=== PATIENT | male | born 1960 | race African-American/Black ===

== ENCOUNTER 2017-01-18 19:04 | Emergency (ER) | payer MEDICAID ==
[~2017-01-18] VITALS: Ht 193 cm; Wt 116.0 kg
[~2017-01-18 19:04] MED LIST: INSU3INS6 SUBCUT
[2017-01-18] MEDS ORDERED: ONDANSETRON HCL 4MG/2ML VIAL IV STA (19:55)
[2017-01-18] MEDS ORDERED: SODIUM CHLORIDE 0.9% 1,000 ML IV ONE (19:55)
[2017-01-18] MEDS ORDERED: PANTOPRAZOLE SODIUM 40 MG/VIAL IV ONE (20:00)
[2017-01-18 20:25] LABS: BASOPHILS % 0.3 % (0.0-2.0); EOSINOPHILS % 0.2 % (0.0-5.0); HEMATOCRIT. 45.2 % (42.0-52.0); HEMOGLOBIN. 14.8 g/dL (14.0-18.0); LYMPHOCYTES % 14.6 % (20.0-50.0); MEAN CORPUSCULAR HEMOGLOBIN 27.7 pg (28.0-32.0); MEAN CORPUSCULAR VOLUME 84.5 fL (80.0-94.0); MEAN PLATELET VOLUME 9.2 fl (7.4-10.4); MONOCYTES % 8.1 % (2.0-8.0); NEUTROPHILS % 76.8 % (40.0-76.0); PLATELET 198 x1000/uL (130-400); RED BLOOD CELL COUNT 5.35 mill/uL (4.7-6.1); RED CELL DISTRIBUTION WIDTH 15.3 % (11.6-14.6)
[2017-01-18 20:31] LABS: CHLORIDE 96 mEq/L (98-107)
[2017-01-18 20:33] LABS: PROTHROMBIN TIME 10.9 sec
[2017-01-18 20:40] LABS: CARBON DIOXIDE 31 mEq/L (21-32); ETHANOL BLOOD < 10 mg/dL
[2017-01-18 23:17] VITALS: BP 164/98
== END 2017-01-18 23:18 | disposition home or self-care (01) ==
LOC: ER 19:10
DX: R10.13 Epigastric pain (principal); E11.65 Type 2 diabetes mellitus with hyperglycemia; Z79.4 Long term (current) use of insulin; Z87.11 Personal history of peptic ulcer disease
CPT/HCPCS: 36415; 71010; 74176; 80053; 83690; 85025; 85610; 93005; 96361; 96374; 96375; 99285; C9113; G0482; J2405; J7030; Z7610; 80305; 81003

== ENCOUNTER 2017-01-23 12:55 | Inpatient (IN) | payer MEDICAID ==
[~2017-01-23] VITALS: Ht 193 cm; Wt 122.5 kg
[2017-01-23] MEDS ORDERED: MORPHINE SULFATE 4 MG/ML CPJ (NOT FOR IM USE) IV STA (14:07)
[2017-01-23] MEDS ORDERED: PANTOPRAZOLE SODIUM 40 MG/VIAL IV STA (14:07)
[2017-01-23] MEDS ORDERED: SODIUM CHLORIDE 0.9% 1,000 ML IV ONE (14:07)
[2017-01-23] MEDS ORDERED: ONDANSETRON HCL 4MG/2ML VIAL IV STA (14:07)
[2017-01-23 14:29] LABS: BASOPHILS % 0.5 % (0.0-2.0); EOSINOPHILS % 0.4 % (0.0-5.0); HEMATOCRIT. 43.4 % (42.0-52.0); HEMOGLOBIN. 14.1 g/dL (14.0-18.0); MEAN CORPUSCULAR HEMOGLOBIN 27.4 pg (28.0-32.0); MEAN CORPUSCULAR VOLUME 84.2 fL (80.0-94.0); MEAN PLATELET VOLUME 9.1 fl (7.4-10.4); MONOCYTES % 7.1 % (2.0-8.0); PLATELET 197 x1000/uL (130-400); RED BLOOD CELL COUNT 5.16 mill/uL (4.7-6.1); RED CELL DISTRIBUTION WIDTH 15.3 % (11.6-14.6)
[2017-01-23 14:35] LABS: CHLORIDE 104 mEq/L (98-107)
[2017-01-23 14:43] LABS: PARTIAL THROMBOPLASTIN TIME 24.7 sec (24.0-34.0); PROTHROMBIN TIME 10.3 sec
[2017-01-23 14:45] LABS: CARBON DIOXIDE 27 mEq/L (21-32)
[2017-01-23] MEDS ORDERED: METOCLOPRAMIDE HCL 10MG/2ML VIAL IV ONE (15:30)
[2017-01-23] MEDS ORDERED: MORPHINE SULFATE 4 MG/ML CPJ (NOT FOR IM USE) IV NR ×2 (15:37→17:21)
[2017-01-23] MEDS ORDERED: ONDANSETRON HCL 4MG/2ML VIAL IV ONE (17:15)
[2017-01-23] MEDS ORDERED: MORPHINE SULFATE 1MG/ML 1ML INJ SYR(NEO) IV ONE (17:15)
[2017-01-23] MEDS ORDERED: SODIUM CHLORIDE 0.9% 1,000 ML IV SCH (18:54)
[2017-01-23] MEDS ORDERED: ACETAMINOPHEN 325MG TABLET PO PRN (19:00)
[2017-01-23] MEDS ORDERED: MAGNESIUM/ALUMINUM HYDROXIDE/SIMETHICONE 30ML UDC PO PRN (19:00)
[2017-01-23] MEDS ORDERED: CLONIDINE 0.1MG TABLET PO PRN (19:00)
[2017-01-23] MEDS ORDERED: PANTOPRAZOLE 80 MG in SODIUM CHLORIDE 0.9% 100 ML IV SCH (19:00)
[2017-01-23] MEDS ORDERED: IPRATROPIUM/ALBUTEROL 0.5-3(2.5)MG/3ML NEB INH PRN (19:00)
[2017-01-23] MEDS ORDERED: ONDANSETRON HCL 4MG/2ML VIAL IV PRN (19:00)
[2017-01-23] MEDS ORDERED: DEXTROSE 50% WATER 50ML SYRINGE IV PRN (22:30)
[2017-01-23] MEDS: SODIUM CHLORIDE 0.9% 1,000 ML IV SCH (22:59)
[2017-01-24] MEDS ORDERED: PANTOPRAZOLE 80 MG in SODIUM CHLORIDE 0.9% 100 ML IV SCH ×2
[2017-01-24] MEDS ORDERED: PNEUMOCOCCAL 23-VAL P-SAC VAC 0.5 ML IM ONE
[2017-01-24] MEDS: PANTOPRAZOLE 80 MG in SODIUM CHLORIDE 0.9% 100 ML IV SCH ×3 (02:56→21:45)
[2017-01-24] MEDS: BLOOD SUGAR DIAGNOSTIC STRIP TEST SCH ×4 (06:26→21:47)
[2017-01-24] MEDS: INSULIN LISPRO 100 UNITS/ML SUBCUT SCH ×4 (06:48→21:47)
[2017-01-24 07:52] LABS: *AMPHETAMINES SCREEN URINE NEGATIVE (NEGATIVE); *BARBITURATES SCREEN URINE NEGATIVE (NEGATIVE); *BENZODIAZEPINES SCREEN URINE NEGATIVE (NEGATIVE); *COCAINE SCREEN URINE NEGATIVE (NEGATIVE); CANNABINOID URINE SCREEN PRESUMTIVE POSITIVE (NEGATIVE); METHADONE URINE SCREEN NEGATIVE (NEGATIVE); PHENCYCLIDINE URINE SCREEN NEGATIVE (NEGATIVE)
[2017-01-24 10:03] LABS: OPIATES URINE SCREEN PRESUMTIVE POSITIVE (NEGATIVE)
[2017-01-24] MEDS: SODIUM CHLORIDE 0.9% 1,000 ML IV SCH (11:33)
[2017-01-25] MEDS: BLOOD SUGAR DIAGNOSTIC STRIP TEST SCH ×2 (05:57→12:17)
[2017-01-25] MEDS: INSULIN LISPRO 100 UNITS/ML SUBCUT SCH ×2 (05:58→12:19)
[2017-01-25 06:10] LABS: BASOPHILS % 0.4 % (0.0-2.0); EOSINOPHILS % 1.5 % (0.0-5.0); HEMATOCRIT. 41.6 % (42.0-52.0); HEMOGLOBIN. 13.7 g/dL (14.0-18.0); LYMPHOCYTES % 29.9 % (20.0-50.0); MEAN CORPUSCULAR HEMOGLOBIN 27.8 pg (28.0-32.0); MEAN CORPUSCULAR VOLUME 84.5 fL (80.0-94.0); MEAN PLATELET VOLUME 9.2 fl (7.4-10.4); MONOCYTES % 8.5 % (2.0-8.0); NEUTROPHILS % 59.7 % (40.0-76.0); PLATELET 203 x1000/uL (130-400); RED BLOOD CELL COUNT 4.92 mill/uL (4.7-6.1); RED CELL DISTRIBUTION WIDTH 15.5 % (11.6-14.6)
[2017-01-25 06:43] LABS: CHLORIDE 104 mEq/L (98-107)
[2017-01-25 06:52] LABS: CARBON DIOXIDE 28 mEq/L (21-32)
[2017-01-25] MEDS: PANTOPRAZOLE 80 MG in SODIUM CHLORIDE 0.9% 100 ML IV SCH (08:41)
[2017-01-25 13:30] VITALS: BP 127/87
[2017-06-17] MEDS ORDERED: CHOL100046 PO (03:07)
[2017-06-18] MEDS ORDERED: PROT40 PO (11:12)
== END 2017-01-25 15:00 | disposition home or self-care (01) | DRG 282 ==
LOC: ER 14:37 → ENRESERV 19:52 → ER 21:15 → 8WST 22:08
PROVIDERS: ADMIT Internal Medicine; ATTEND Internal Medicine
DX: K85.00 Idiopathic acute pancreatitis without necrosis or infection (principal); E11.65 Type 2 diabetes mellitus with hyperglycemia; E11.9 Type 2 diabetes mellitus without complications; K86.1 Other chronic pancreatitis; F17.210 Nicotine dependence, cigarettes, uncomplicated; Z86.19 Personal history of other infectious and parasitic diseases; Z79.4 Long term (current) use of insulin; Z87.11 Personal history of peptic ulcer disease
CPT/HCPCS: 36415; 74176; 80053; 80305; 82962; 83690; 85025; 85610; 85730; 86850; 86900; 90732; 93970; 96374; 96375; 96376; 99285; C9113; J1815; J2270; J2405; J2765; J7030; J7050

== ENCOUNTER 2017-04-13 19:39 | Inpatient (IN) | payer MEDICAID ==
[~2017-04-13] VITALS: Ht 193 cm; Wt 115.7 kg
[~2017-04-13 19:39] MED LIST changes: +IOHEXOL-300 100 ML BOTTLE ONE; +SODIUM CHLORIDE 0.9% 10ML VIAL ONE
[2017-04-13 20:56] LABS: BASOPHILS % 0.4 % (0.0-2.0); HEMATOCRIT. 47.1 % (42.0-52.0); HEMOGLOBIN. 15.4 g/dL (14.0-18.0); LYMPHOCYTES % 9.7 % (20.0-50.0); MEAN CORPUSCULAR HEMOGLOBIN 28.2 pg (28.0-32.0); MEAN CORPUSCULAR VOLUME 86.1 fL (80.0-94.0); MEAN PLATELET VOLUME 10.3 fl (7.4-10.4); MONOCYTES % 6.3 % (2.0-8.0); NEUTROPHILS % 83.6 % (40.0-76.0); PLATELET 213 x1000/uL (130-400); RED BLOOD CELL COUNT 5.47 mill/uL (4.7-6.1); RED CELL DISTRIBUTION WIDTH 15.4 % (11.6-14.6)
[2017-04-13 21:05] LABS: INR 1.1; PARTIAL THROMBOPLASTIN TIME 24.2 sec (23.4-31.0); PROTHROMBIN TIME 10.9 sec (9.4-11.6)
[2017-04-13 21:14] LABS: CARBON DIOXIDE 32 mEq/L (21-32); CHLORIDE 90 mEq/L (98-107); TROPONIN I < 0.02 ng/mL (0.00-0.04)
[2017-04-13 21:17] LABS: CREATINE KINASE 314 IU/L (39-308); CREATINE KINASE MB FRACTION 2.3 ng/mL (0.5-3.6)
[2017-04-13] MEDS ORDERED: MORPHINE SULFATE 4 MG/ML CPJ (NOT FOR IM USE) IV STA (21:56)
[2017-04-13] MEDS ORDERED: ONDANSETRON HCL 4MG/2ML VIAL IV STA (21:56)
[2017-04-13] MEDS ORDERED: PIPERACILLIN/TAZ 3.375G PREMIX 50 ML IV ONE (22:15)
[2017-04-13] MEDS ORDERED: SODIUM CHLORIDE 0.9% 1000ML BAG (SEPSIS BOLUS) IV ONE (22:15)
[2017-04-13 22:31] LABS: CLARITY URINE CLEAR (CLEAR); COLOR URINE YELLOW (YELLOW); GLUCOSE URINE 3+ (NEGATIVE); KETONES URINE TRACE (NEGATIVE); LEUKOCYTE ESTERASE URINE NEGATIVE (NEGATIVE); NITRITE URINE NEGATIVE (NEGATIVE); OCCULT BLOOD URINE TRACE (NEGATIVE); PROTEIN URINE TRACE (NEGATIVE); SPECIFIC GRAVITY URINE 1.037 (1.005-1.030); UROBILINOGEN URINE 0.2 E.U./dL (0.2-1.0)
[2017-04-13 22:43] LABS: *AMPHETAMINES SCREEN URINE NEGATIVE (NEGATIVE); *BARBITURATES SCREEN URINE NEGATIVE (NEGATIVE); *BENZODIAZEPINES SCREEN URINE NEGATIVE (NEGATIVE); *COCAINE SCREEN URINE NEGATIVE (NEGATIVE); CANNABINOID URINE SCREEN PRESUMTIVE POSITIVE (NEGATIVE); METHADONE URINE SCREEN NEGATIVE (NEGATIVE); OPIATES URINE SCREEN NEGATIVE (NEGATIVE); PHENCYCLIDINE URINE SCREEN NEGATIVE (NEGATIVE)
[2017-04-13] MEDS ORDERED: INSULIN REGULAR (HUMULIN R) 300UNITS/3ML IV ONE (22:45)
[2017-04-14 00:50] VITALS: BP 155/90
[2017-04-14] MEDS ORDERED: METOCLOPRAMIDE HCL 10MG/2ML VIAL IV PRN (03:00)
[2017-04-14] MEDS ORDERED: ONDANSETRON HCL 4MG/2ML VIAL IV PRN ×2 (03:00)
[2017-04-14] MEDS ORDERED: DIPHENHYDRAMINE 50MG/ML VIAL IV PRN (03:00)
[2017-04-14] MEDS ORDERED: DEXTROSE 50% WATER 50ML SYRINGE IV PRN ×2 (03:00)
[2017-04-14] MEDS ORDERED: CLONIDINE 0.1MG TABLET PO PRN (03:00)
[2017-04-14] MEDS ORDERED: MORPHINE SULFATE 4 MG/ML CPJ (NOT FOR IM USE) IV PRN (03:00)
[2017-04-14] MEDS ORDERED: MORPHINE SULFATE 10 MG/ML CPJ IM SCH (03:00)
[2017-04-14] MEDS ORDERED: ACETAMINOPHEN 325MG TABLET PO PRN (03:00)
[2017-04-14] MEDS: BLOOD SUGAR DIAGNOSTIC STRIP TEST SCH ×4 (07:01→21:18)
[2017-04-14 07:59] VITALS: BP 146/75
[2017-04-14 08:42] LABS: BASOPHILS % 0.2 % (0.0-2.0); EOSINOPHILS % 0.1 % (0.0-5.0); HEMOGLOBIN. 14.7 g/dL (14.0-18.0); LYMPHOCYTES % 9.9 % (20.0-50.0); MEAN CORPUSCULAR HEMOGLOBIN 28.2 pg (28.0-32.0); MEAN CORPUSCULAR VOLUME 86.2 fL (80.0-94.0); MEAN PLATELET VOLUME 10.4 fl (7.4-10.4); MONOCYTES % 8.8 % (2.0-8.0); PLATELET 183 x1000/uL (130-400); RED BLOOD CELL COUNT 5.22 mill/uL (4.7-6.1); RED CELL DISTRIBUTION WIDTH 15.2 % (11.6-14.6)
[2017-04-14] MEDS: PANTOPRAZOLE SODIUM 40 MG/VIAL IV SCH (09:01)
[2017-04-14] MEDS: INSULIN LISPRO 100 UNITS/ML SUBCUT SCH ×4 (09:01→21:18)
[2017-04-14] MEDS: SODIUM CHLORIDE 0.9% 1,000 ML IV SCH ×3 (10:11→22:22)
[2017-04-14 12:00] VITALS: BP 134/63
[2017-04-14 16:00] VITALS: BP 149/79
[2017-04-14 20:00] VITALS: BP 148/75
[2017-04-15] VITALS: BP 125/63
[2017-04-15 04:00] VITALS: BP 145/77
[2017-04-15] MEDS: SODIUM CHLORIDE 0.9% 1,000 ML IV SCH ×3 (04:44→14:38)
[2017-04-15] MEDS: BLOOD SUGAR DIAGNOSTIC STRIP TEST SCH ×4 (06:25→21:29)
[2017-04-15 08:18] VITALS: BP 148/76
[2017-04-15] MEDS: PANTOPRAZOLE SODIUM 40 MG/VIAL IV SCH (09:09)
[2017-04-15] MEDS: INSULIN LISPRO 100 UNITS/ML SUBCUT SCH ×4 (09:14→21:30)
[2017-04-15] MEDS ORDERED: PRED10DR RIGHTEYE (11:54)
[2017-04-15 12:00] VITALS: BP 142/73
[2017-04-15] MEDS ORDERED: MAGNESIUM HYDROXIDE 400MG/5ML 30ML UDC PO PRN (12:00)
[2017-04-15] MEDS: PREDNISOLONE ACETATE 1% OPHTH DROPS 1ML RIGHTEYE SCH ×2 (12:27→17:41)
[2017-04-15 16:05] VITALS: BP 144/72
[2017-04-15 20:50] VITALS: BP 138/81
[2017-04-16] VITALS: BP 114/66
[2017-04-16] MEDS: PREDNISOLONE ACETATE 1% OPHTH DROPS 1ML RIGHTEYE SCH ×3 (00:55→13:24)
[2017-04-16 04:00] VITALS: BP 121/72
[2017-04-16 05:58] LABS: BASOPHILS % 0.3 % (0.0-2.0); EOSINOPHILS % 0.7 % (0.0-5.0); HEMATOCRIT. 45.8 % (42.0-52.0); HEMOGLOBIN. 14.9 g/dL (14.0-18.0); LYMPHOCYTES % 23.8 % (20.0-50.0); MEAN CORPUSCULAR HEMOGLOBIN 28.3 pg (28.0-32.0); MEAN CORPUSCULAR VOLUME 86.8 fL (80.0-94.0); MEAN PLATELET VOLUME 10.1 fl (7.4-10.4); MONOCYTES % 11.1 % (2.0-8.0); NEUTROPHILS % 64.1 % (40.0-76.0); PLATELET 168 x1000/uL (130-400); RED BLOOD CELL COUNT 5.27 mill/uL (4.7-6.1)
[2017-04-16] MEDS: BLOOD SUGAR DIAGNOSTIC STRIP TEST SCH ×2 (06:39→12:17)
[2017-04-16 07:02] LABS: CARBON DIOXIDE 25 mEq/L (21-32); CHLORIDE 102 mEq/L (98-107)
[2017-04-16 08:00] VITALS: BP 138/72
[2017-04-16] MEDS: PANTOPRAZOLE SODIUM 40 MG/VIAL IV SCH (09:31)
[2017-04-16] MEDS: INSULIN LISPRO 100 UNITS/ML SUBCUT SCH ×2 (09:35→13:24)
[2017-04-16] MEDS: SODIUM CHLORIDE 0.9% 1,000 ML IV SCH (10:38)
[2017-04-16 12:00] VITALS: BP 138/78
[2017-04-17] MEDS ORDERED: FAMOTIDINE 20MG/2ML VIAL IV SCH (09:00)
== END 2017-04-16 17:30 | disposition home or self-care (01) | DRG 48 ==
LOC: ER 19:39 → 6WST 20:37 → EDBEDREQTM 23:37 → EDBEDREQ 23:37 → ENRESERV 23:41
PROVIDERS: ADMIT Internal Medicine; ATTEND Internal Medicine
DX: E11.43 Type 2 diabetes mellitus with diabetic autonomic (poly)neuropathy (principal); R65.11 Systemic inflammatory response syndrome (SIRS) of non-infectious origin with acute organ dysfunction; K92.0 Hematemesis; E11.65 Type 2 diabetes mellitus with hyperglycemia; K31.84 Gastroparesis; N39.0 Urinary tract infection, site not specified; I10 Essential (primary) hypertension; K22.9 Disease of esophagus, unspecified; Z79.4 Long term (current) use of insulin
CPT/HCPCS: 36415; 74022; 74177; 76705; 80048; 80053; 80305; 81001; 82010; 82550; 82553; 82962; 83605; 83690; 83735; 84484; 85025; 85610; 85730; 87040; 87086; 93005; 96365; 96375; 99291; A4216; C1893; C9113; J1815; J2270; J2405; J2543; J2765; J7030; Q9967

== ENCOUNTER 2017-09-26 21:39 | Emergency (ER) | payer MEDICAID ==
[~2017-09-26] VITALS: Ht 193 cm; Wt 113.0 kg
[~2017-09-26 21:39] MED LIST changes: +CHOL100046 PO; -IOHEXOL-300 100 ML BOTTLE ONE; +PRED10DR RIGHTEYE; +PROT40 PO; -SODIUM CHLORIDE 0.9% 10ML VIAL ONE
[2017-09-26] MEDS ORDERED: ONDANSETRON HCL 4MG/2ML VIAL IV STA (22:35)
[2017-09-26] MEDS ORDERED: MORPHINE SULFATE 4 MG/ML CPJ (NOT FOR IM USE) IV STA (22:35)
[2017-09-26] MEDS ORDERED: SODIUM CHLORIDE 0.9% 1,000 ML IV ONE (22:35)
[2017-09-26] MEDS ORDERED: DIPHENHYDRAMINE 50MG/ML VIAL IV ONE (22:45)
[2017-09-26] MEDS ORDERED: LORAZEPAM 2MG/ML CPJ IV ONE (22:45)
[2017-09-26] MEDS ORDERED: FAMOTIDINE 20MG/2ML VIAL IV ONE (22:45)
[2017-09-26] MEDS ORDERED: INSULIN REGULAR (HUMULIN R) 300UNITS/3ML IV ONE (22:45)
[2017-09-26 23:05] LABS: BASOPHILS % 0.4 % (0.0-2.0); HEMATOCRIT. 45.2 % (42.0-52.0); HEMOGLOBIN. 14.8 g/dL (14.0-18.0); LYMPHOCYTES % 7.5 % (20.0-50.0); MEAN CORPUSCULAR HEMOGLOBIN 27.9 pg (28.0-32.0); MEAN CORPUSCULAR VOLUME 85.3 fL (80.0-94.0); MEAN PLATELET VOLUME 9.9 fl (7.4-10.4); MONOCYTES % 2.5 % (2.0-8.0); NEUTROPHILS % 89.6 % (40.0-76.0); PLATELET 226 x1000/uL (130-400); RED BLOOD CELL COUNT 5.29 mill/uL (4.7-6.1); RED CELL DISTRIBUTION WIDTH 16.5 % (11.6-14.6)
[2017-09-26 23:11] LABS: PARTIAL THROMBOPLASTIN TIME 20.3 sec (23.4-31.0); PROTHROMBIN TIME 10.2 sec (9.4-11.6)
[2017-09-26 23:13] LABS: CHLORIDE 99 mEq/L (98-107)
[2017-09-26 23:19] LABS: TROPONIN I < 0.02 ng/mL (0.00-0.04)
[2017-09-27 00:11] LABS: CLARITY URINE CLEAR (CLEAR); COLOR URINE YELLOW (YELLOW); KETONES URINE 1+ (NEGATIVE); LEUKOCYTE ESTERASE URINE NEGATIVE (NEGATIVE); NITRITE URINE NEGATIVE (NEGATIVE); OCCULT BLOOD URINE 1+ (NEGATIVE); PH URINE 5.5 (4.5-8.0); PROTEIN URINE 2+ (NEGATIVE); SPECIFIC GRAVITY URINE 1.039 (1.005-1.030); UROBILINOGEN URINE 0.2 E.U./dL (0.2-1.0)
[2017-09-27 00:43] LABS: *AMPHETAMINES SCREEN URINE NEGATIVE (NEGATIVE); *COCAINE SCREEN URINE NEGATIVE (NEGATIVE); CANNABINOID URINE SCREEN PRESUMTIVE POSITIVE (NEGATIVE); METHADONE URINE SCREEN NEGATIVE (NEGATIVE); OPIATES URINE SCREEN NEGATIVE (NEGATIVE); PHENCYCLIDINE URINE SCREEN NEGATIVE (NEGATIVE)
[2017-09-27 00:44] LABS: *BARBITURATES SCREEN URINE NEGATIVE (NEGATIVE); *BENZODIAZEPINES SCREEN URINE NEGATIVE (NEGATIVE)
[2017-09-27 03:12] VITALS: BP 160/80
== END 2017-09-27 03:20 | disposition home or self-care (01) ==
LOC: ER 21:39
DX: R10.13 Epigastric pain (principal); G89.29 Other chronic pain; R07.89 Other chest pain; E11.65 Type 2 diabetes mellitus with hyperglycemia; I10 Essential (primary) hypertension; Z79.4 Long term (current) use of insulin
CPT/HCPCS: 36415; 74176; 80053; 80305; 81003; 82962; 83690; 84484; 85025; 85610; 85730; 87086; 93005; 96361; 96374; 96375; 99285; J1200; J1815; J2060; J2270; J2405; J3490; J7030

== ENCOUNTER 2017-12-15 11:31 | Emergency (ER) | payer MEDICAID ==
[~2017-12-15] VITALS: Ht 185.4 cm; Wt 98.0 kg
[2017-12-15 12:50] LABS: HEMATOCRIT. 45.5 % (42.0-52.0); HEMOGLOBIN. 14.6 g/dL (14.0-18.0); MEAN CORPUSCULAR HEMOGLOBIN 27.9 pg (28.0-32.0); MEAN CORPUSCULAR VOLUME 86.9 fL (80.0-94.0); MEAN PLATELET VOLUME 9.4 fl (7.4-10.4); PLATELET 208 x1000/uL (130-400); RED BLOOD CELL COUNT 5.24 mill/uL (4.7-6.1); RED CELL DISTRIBUTION WIDTH 15.5 % (11.6-14.6)
[2017-12-15 12:55] LABS: PROTHROMBIN TIME 10.6 sec (9.4-11.6)
[2017-12-15 13:00] LABS: CHLORIDE 102 mEq/L (98-107)
[2017-12-15 13:08] LABS: PLATELET ESTIMATE NORMAL
[2017-12-15] MEDS ORDERED: ONDANSETRON HCL 4MG/2ML VIAL IV STA (13:36)
[2017-12-15] MEDS ORDERED: MORPHINE SULFATE 4 MG/ML CPJ (NOT FOR IM USE) IV STA ×2 (13:36→16:42)
[2017-12-15] MEDS ORDERED: SODIUM CHLORIDE 0.9% 1,000 ML IV ONE (13:36)
[2017-12-15] MEDS ORDERED: INSULIN REGULAR (HUMULIN R) UD 100 UNITS/ML SYR SUBCUT ONE ×2 (13:45→16:30)
[2017-12-15] MEDS ORDERED: INSULIN REGULAR (HUMULIN R) 300UNITS/3ML SUBCUT NR (14:15)
[2017-12-15 16:27] LABS: CLARITY URINE CLEAR (CLEAR); COLOR URINE YELLOW (YELLOW); KETONES URINE 2+ (NEGATIVE); LEUKOCYTE ESTERASE URINE NEGATIVE (NEGATIVE); NITRITE URINE NEGATIVE (NEGATIVE); OCCULT BLOOD URINE 1+ (NEGATIVE); PROTEIN URINE 1+ (NEGATIVE); SPECIFIC GRAVITY URINE 1.037 (1.005-1.030); UROBILINOGEN URINE 0.2 E.U./dL (0.2-1.0)
[2017-12-15] MEDS: INSULIN REGULAR (HUMULIN R) 300UNITS/3ML SUBCUT NR ×2 (17:07→18:01)
[2017-12-15] MEDS ORDERED: ONDANSETRON 4MG ODT PO ONE (17:45)
[2017-12-15 19:10] VITALS: BP 170/82
== END 2017-12-15 19:17 | disposition home or self-care (01) ==
LOC: ER 13:22
DX: K80.20 Calculus of gallbladder without cholecystitis without obstruction (principal); E11.65 Type 2 diabetes mellitus with hyperglycemia; Z79.4 Long term (current) use of insulin
CPT/HCPCS: 36415; 71045; 74176; 76705; 80053; 81003; 82010; 82962; 83690; 85025; 85610; 93005; 96361; 96372; 96374; 96375; 96376; 99285; J1815; J2270; J2405; J7030; Q0162; Z7610

== ENCOUNTER 2018-07-14 05:04 | Emergency (ER) | payer MEDICAID ==
[~2018-07-14] VITALS: Ht 193 cm; Wt 112.0 kg
[2018-07-14] MEDS ORDERED: ONDANSETRON HCL 4MG/2ML INJ IV STA (06:26)
[2018-07-14] MEDS ORDERED: SODIUM CHLORIDE 0.9% 1,000 ML IV ONE (06:26)
[2018-07-14] MEDS ORDERED: MORPHINE SULFATE 4 MG/ML CPJ (NOT FOR IM USE) IV STA (06:26)
[2018-07-14] MEDS ORDERED: FAMOTIDINE 20MG/2ML VIAL IV STA (06:26)
[2018-07-14] MEDS ORDERED: MORPHINE SULFATE 10 MG/ML CPJ IV SCH (06:45)
[2018-07-14 06:46] LABS: BASOPHILS % 0.1 % (0.0-2.0); HEMATOCRIT. 46.5 % (42.0-52.0); HEMOGLOBIN. 15.2 g/dL (14.0-18.0); LYMPHOCYTES % 10.3 % (20.0-50.0); MEAN CORPUSCULAR HEMOGLOBIN 28.6 pg (28.0-32.0); MEAN CORPUSCULAR VOLUME 87.4 fL (80.0-94.0); MEAN PLATELET VOLUME 10.4 fl (7.4-10.4); MONOCYTES % 4.8 % (2.0-8.0); NEUTROPHILS % 84.8 % (40.0-76.0); PLATELET 198 x1000/uL (130-400); RED BLOOD CELL COUNT 5.32 mill/uL (4.7-6.1); RED CELL DISTRIBUTION WIDTH 15.5 % (11.6-14.6)
[2018-07-14 06:51] LABS: CHLORIDE 100 mEq/L (98-107)
[2018-07-14 07:56] LABS: CLARITY URINE CLEAR (CLEAR); COLOR URINE YELLOW (YELLOW); KETONES URINE 3+ (NEGATIVE); LEUKOCYTE ESTERASE URINE NEGATIVE (NEGATIVE); NITRITE URINE NEGATIVE (NEGATIVE); OCCULT BLOOD URINE TRACE (NEGATIVE); PROTEIN URINE 2+ (NEGATIVE); SPECIFIC GRAVITY URINE 1.042 (1.005-1.030)
[2018-07-14] MEDS ORDERED: KETOROLAC 30MG/ML VIAL IV ONE (08:45)
[2018-07-14 08:46] VITALS: BP 167/75
== END 2018-07-14 09:01 | disposition home or self-care (01) ==
LOC: ER 05:41
DX: K80.20 Calculus of gallbladder without cholecystitis without obstruction (principal); K82.4 Cholesterolosis of gallbladder; E11.9 Type 2 diabetes mellitus without complications; R05 Cough; Z79.4 Long term (current) use of insulin; Z79.899 Other long term (current) drug therapy
CPT/HCPCS: 36415; 71045; 76705; 80053; 81003; 83690; 85025; 93005; 96361; 96374; 96375; 99284; J1885; J2270; J2405; J3490; J7030

== ENCOUNTER 2019-05-28 00:21 | Inpatient (IN) | payer MEDICAID ==
[~2019-05-28] VITALS: Ht 193 cm; Wt 115.7 kg
[2019-05-28] MEDS ORDERED: MORPHINE SULFATE 4 MG/ML CPJ (NOT FOR IM USE) IV STA (01:16)
[2019-05-28] MEDS ORDERED: FAMOTIDINE 20MG/2ML VIAL IV STA (01:16)
[2019-05-28] MEDS ORDERED: ONDANSETRON HCL 4MG/2ML INJ IV STA (01:16)
[2019-05-28] MEDS ORDERED: SODIUM CHLORIDE 0.9% 1,000 ML IV ONE (01:16)
[2019-05-28 02:05] LABS: CHLORIDE 97 mEq/L (98-107)
[2019-05-28 02:20] LABS: BASOPHILS % 0.3 % (0.0-2.0); EOSINOPHILS % 0.1 % (0.0-5.0); HEMATOCRIT. 46.9 % (42.0-52.0); HEMOGLOBIN. 15.3 g/dL (14.0-18.0); LYMPHOCYTES % 11.7 % (20.0-50.0); MEAN CORPUSCULAR HEMOGLOBIN 28.8 pg (28.0-32.0); MEAN PLATELET VOLUME 9.8 fl (7.4-10.4); MONOCYTES % 6.5 % (2.0-8.0); NEUTROPHILS % 81.4 % (40.0-76.0); PLATELET 226 x1000/uL (130-400); RED BLOOD CELL COUNT 5.33 mill/uL (4.7-6.1); RED CELL DISTRIBUTION WIDTH 15.8 % (11.6-14.6)
[2019-05-28 08:50] VITALS: BP 131/85
[2019-05-28] MEDS ORDERED: HYDROCODONE/ACETAMINOPHEN 5/325MG TABLET PO PRN (09:15)
[2019-05-28] MEDS ORDERED: ONDANSETRON HCL 4MG/2ML INJ IV PRN (09:15)
[2019-05-28] MEDS ORDERED: MAGNESIUM/ALUMINUM HYDROXIDE/SIMETHICONE 30ML UDC PO PRN (09:15)
[2019-05-28] MEDS ORDERED: IPRATROPIUM/ALBUTEROL 0.5-3(2.5)MG/3ML NEB HHN PRN (09:15)
[2019-05-28] MEDS ORDERED: CLONIDINE 0.1MG TABLET PO PRN (09:15)
[2019-05-28] MEDS ORDERED: DIPHENHYDRAMINE 50MG/ML VIAL IV PRN (09:15)
[2019-05-28] MEDS ORDERED: ACETAMINOPHEN 325MG TABLET PO PRN (09:15)
[2019-05-28] MEDS ORDERED: DOCUSATE SODIUM 100MG CAPSULE PO PRN (09:15)
[2019-05-28] MEDS ORDERED: GUAIFENESIN 200MG/10ML SUGAR FREE UDC PO PRN (09:15)
[2019-05-28] MEDS ORDERED: DEXTROSE 50% WATER 50ML SYRINGE IV PRN (09:30)
[2019-05-28 10:14] LABS: PHOSPHORUS 3.3 mg/dL (2.5-4.9)
[2019-05-28 10:36] VITALS: BP 131/85
[2019-05-28] MEDS ORDERED: INSU100I24 SQ (10:45)
[2019-05-28 12:00] VITALS: BP 133/76
[2019-05-28] MEDS: BLOOD SUGAR DIAGNOSTIC STRIP TEST SCH ×3 (12:10→21:00)
[2019-05-28] MEDS: INSULIN LISPRO 100 UNITS/ML SUBCUT SCH ×3 (13:12→21:00)
[2019-05-28] MEDS: SODIUM CHLORIDE 0.9% 1,000 ML IV SCH (14:52)
[2019-05-28 16:00] VITALS: BP 121/82
[2019-05-28] MEDS: METOCLOPRAMIDE HCL 10MG/2ML VIAL IV SCH (18:11)
[2019-05-29] VITALS: BP 120/67
[2019-05-29] MEDS: METOCLOPRAMIDE HCL 10MG/2ML VIAL IV SCH ×4 (01:54→18:19)
[2019-05-29] MEDS: SODIUM CHLORIDE 0.9% 1,000 ML IV SCH (01:54)
[2019-05-29 04:00] VITALS: BP 125/60
[2019-05-29] MEDS: BLOOD SUGAR DIAGNOSTIC STRIP TEST SCH ×4 (06:23→21:03)
[2019-05-29] MEDS: INSULIN LISPRO 100 UNITS/ML SUBCUT SCH ×4 (06:24→21:00)
[2019-05-29 07:06] LABS: CHLORIDE 104 mEq/L (98-107)
[2019-05-29 07:16] LABS: LDL CHOLESTEROL 104 mg/dL (5-100)
[2019-05-29 07:17] LABS: HDL CHOLESTEROL 47 mg/dL (40-59)
[2019-05-29 07:22] LABS: BASOPHILS % 0.2 % (0.0-2.0); HEMATOCRIT. 42.4 % (42.0-52.0); HEMOGLOBIN. 13.8 g/dL (14.0-18.0); LYMPHOCYTES % 25.2 % (20.0-50.0); MEAN CORPUSCULAR HEMOGLOBIN 28.3 pg (28.0-32.0); MEAN CORPUSCULAR VOLUME 87.2 fL (80.0-94.0); MEAN PLATELET VOLUME 9.8 fl (7.4-10.4); MONOCYTES % 9.1 % (2.0-8.0); NEUTROPHILS % 64.5 % (40.0-76.0); PLATELET 200 x1000/uL (130-400); RED BLOOD CELL COUNT 4.87 mill/uL (4.7-6.1); RED CELL DISTRIBUTION WIDTH 15.5 % (11.6-14.6)
[2019-05-29] MEDS: PANTOPRAZOLE SODIUM 40 MG/VIAL IV SCH (08:59)
[2019-05-29 10:17] VITALS: BP 126/59
[2019-05-29 12:00] VITALS: BP 150/87
[2019-05-29] MEDS ORDERED: FENTANYL CITRATE/PF 50MCG/ML 2ML VIAL ONE (15:05)
[2019-05-29] MEDS ORDERED: MIDAZOLAM HCL 5 MG/5 ML VIAL ONE (15:05)
[2019-05-29 20:00] VITALS: BP_SYST 109; BP_SYST 96; BP_DIAS 63; BP_DIAS 66
[2019-05-29] MEDS: SUCRALFATE 1G TABLET PO SCH (21:00)
[2019-05-30] VITALS: BP 112/73
[2019-05-30] MEDS: METOCLOPRAMIDE HCL 10MG/2ML VIAL IV SCH ×3 (01:06→12:50)
[2019-05-30 04:00] VITALS: BP 123/69
[2019-05-30] MEDS: SUCRALFATE 1G TABLET PO SCH ×3 (06:15→12:50)
[2019-05-30] MEDS: SODIUM CHLORIDE 0.9% 1,000 ML IV SCH ×2 (06:22→12:51)
[2019-05-30] MEDS: INSULIN LISPRO 100 UNITS/ML SUBCUT SCH ×2 (06:28→12:53)
[2019-05-30] MEDS: BLOOD SUGAR DIAGNOSTIC STRIP TEST SCH ×2 (06:29→12:05)
[2019-05-30 06:43] LABS: BASOPHILS % 0.2 % (0.0-2.0); EOSINOPHILS % 0.9 % (0.0-5.0); HEMATOCRIT. 44.4 % (42.0-52.0); HEMOGLOBIN. 14.9 g/dL (14.0-18.0); LYMPHOCYTES % 26.6 % (20.0-50.0); MEAN CORPUSCULAR VOLUME 86.6 fL (80.0-94.0); MEAN PLATELET VOLUME 9.6 fl (7.4-10.4); MONOCYTES % 7.8 % (2.0-8.0); NEUTROPHILS % 64.5 % (40.0-76.0); PLATELET 194 x1000/uL (130-400); RED BLOOD CELL COUNT 5.13 mill/uL (4.7-6.1); RED CELL DISTRIBUTION WIDTH 15.3 % (11.6-14.6)
[2019-05-30 07:49] LABS: CHLORIDE 106 mEq/L (98-107)
[2019-05-30] MEDS: PANTOPRAZOLE SODIUM 40 MG/VIAL IV SCH (08:53)
[2019-05-30 12:00] VITALS: BP 111/69
[2019-05-30] MEDS ORDERED: SODIUM CHLORIDE 0.9% 10ML VIAL ONE (12:00)
[2019-05-30] MEDS ORDERED: SIMETHICONE 40 MG/0.6 ML 30ML ONE (12:00)
[2019-05-30] MEDS ORDERED: PROT40 PO (13:30)
[2019-05-30] MEDS ORDERED: SUCR1TAB30 PO (13:30)
[2019-05-30 15:00] VITALS: BP 111/69
== END 2019-05-30 15:40 | disposition home or self-care (01) | DRG 242 ==
LOC: ER 00:21 → EDBEDREQ 02:24 → 8WST 03:59 → EDBEDREQTM 04:01 → EDBEDREQ 04:01 → ENRESERV 07:39
PROVIDERS: ADMIT Internal Medicine; ATTEND Internal Medicine
PROC: 0DB58ZX Excision of Esophagus, Via Natural or Artificial Opening Endoscopic, Diagnostic (ICD-10-PCS; principal; 2019-05-29)
PROC: 0DB68ZX Excision of Stomach, Via Natural or Artificial Opening Endoscopic, Diagnostic (ICD-10-PCS; 2019-05-29)
DX: K22.11 Ulcer of esophagus with bleeding (principal); K85.90 Acute pancreatitis without necrosis or infection, unspecified; K31.84 Gastroparesis; E11.43 Type 2 diabetes mellitus with diabetic autonomic (poly)neuropathy; E11.65 Type 2 diabetes mellitus with hyperglycemia; I10 Essential (primary) hypertension; K80.20 Calculus of gallbladder without cholecystitis without obstruction; Z79.4 Long term (current) use of insulin; Z79.899 Other long term (current) drug therapy
CPT/HCPCS: 36415; 71045; 74176; 80048; 80061; 82962; 83605; 83735; 84100; 84443; 84450; 84460; 86850; 86900; 88305; 88312; 88313; 93005; 93970; 96374; 96375; 99291; C9113; J1815; J2250; J2270; J2405; J2765; J3010; J3490; J7030

== ENCOUNTER 2020-10-29 19:02 | Inpatient (IN) | payer MEDICAID ==
[~2020-10-29] VITALS: Ht 185.4 cm; Wt 106.1 kg
[~2020-10-29 19:02] MED LIST changes: +BENA5TAB6 MT; -CHOL100046 PO; +INSU100I24 SQ; -INSU3INS6 SUBCUT; +METF-416 MT; -PRED10DR RIGHTEYE; +SUCR1TAB30 PO
[2020-10-29] MEDS ORDERED: NITROGLYCERIN OINT 1GM/INCH UDPKT TD ONE (20:45)
[2020-10-29 21:29] LABS: BASOPHILS % 1.1 % (0.0-2.0); EOSINOPHILS % 0.1 % (0.0-5.0); HEMATOCRIT. 47.1 % (42.0-52.0); LYMPHOCYTES % 10.5 % (20.0-50.0); MEAN CORPUSCULAR HEMOGLOBIN 28.3 pg (28.0-32.0); MEAN CORPUSCULAR VOLUME 83.3 fL (80.0-94.0); MEAN PLATELET VOLUME 9.7 fl (7.4-10.4); MONOCYTES % 5.8 % (2.0-8.0); NEUTROPHILS % 82.5 % (40.0-76.0); PLATELET 213 x1000/uL (130-400); RED BLOOD CELL COUNT 5.65 mill/uL (4.7-6.1); RED CELL DISTRIBUTION WIDTH 15.7 % (11.6-14.6)
[2020-10-29 21:37] LABS: D-DIMER 0.81 mg/L FEU (<0.50); PROTHROMBIN TIME 10.9 sec (9.6-11.0)
[2020-10-29] MEDS ORDERED: PIPERACILLIN/TAZ 3.375G PREMIX 50 ML IV ONE (22:15)
[2020-10-29 22:27] LABS: CHLORIDE 95 mEq/L (98-107)
[2020-10-29] MEDS ORDERED: MORPHINE SULFATE 2 MG/ML CPJ (NOT FOR IM USE) IV NR (22:30)
[2020-10-29 22:43] LABS: CLARITY URINE CLEAR (CLEAR); COLOR URINE YELLOW (YELLOW); KETONES URINE 1+ (NEGATIVE); LEUKOCYTE ESTERASE URINE NEGATIVE (NEGATIVE); NITRITE URINE NEGATIVE (NEGATIVE); OCCULT BLOOD URINE 1+ (NEGATIVE); PROTEIN URINE 2+ (NEGATIVE); UROBILINOGEN URINE 0.2 E.U./dL (0.2-1.0)
[2020-10-29] MEDS ORDERED: SODIUM CHLORIDE 0.9% 1000ML BAG (SEPSIS BOLUS) IV NR (22:45)
[2020-10-29] MEDS ORDERED: INSULIN REGULAR (HUMULIN R) 300UNITS/3ML VIAL SUBCUT NR (23:00)
[2020-10-29 23:19] LABS: CHLORIDE 95 mEq/L (98-107)
[2020-10-30] MEDS ORDERED: ENOXAPARIN 100MG/ML SYR SUBCUT ONE (00:45)
[2020-10-30] MEDS ORDERED: IOHEXOL-350 100 ML BOTTLE ONE (06:44)
[2020-10-30 09:00] VITALS: BP 143/78
[2020-10-30] MEDS ORDERED: ONDANSETRON HCL 4MG/2ML INJ IV PRN ×2 (09:30→17:45)
[2020-10-30] MEDS ORDERED: DEXT 5%/0.9% NACL 1,000 ML IV SCH (10:30)
[2020-10-30] MEDS ORDERED: PNEUMOCOCCAL 23-VAL P-SAC VAC 0.5 ML IM ONE (10:30)
[2020-10-30] MEDS ORDERED: DIATR MEGLU/DIATRIZOATE SOLN 120ML ONE (10:31)
[2020-10-30 11:02] LABS: BASOPHILS % 0.5 % (0.0-2.0); EOSINOPHILS % 0.2 % (0.0-5.0); HEMATOCRIT. 41.2 % (42.0-52.0); HEMOGLOBIN. 13.8 g/dL (14.0-18.0); LYMPHOCYTES % 11.9 % (20.0-50.0); MEAN CORPUSCULAR VOLUME 83.9 fL (80.0-94.0); MEAN PLATELET VOLUME 9.5 fl (7.4-10.4); MONOCYTES % 7.7 % (2.0-8.0); NEUTROPHILS % 79.7 % (40.0-76.0); PLATELET 211 x1000/uL (130-400); RED BLOOD CELL COUNT 4.91 mill/uL (4.7-6.1); RED CELL DISTRIBUTION WIDTH 15.3 % (11.6-14.6)
[2020-10-30 11:07] LABS: CHLORIDE 99 mEq/L (98-107)
[2020-10-30 12:00] VITALS: BP 146/76
[2020-10-30 12:02] LABS: HEPATITIS B SURFACE ANTIGEN NEGATIVE
[2020-10-30] MEDS ORDERED: BARIUM SULFATE 450ML ORAL SUSP ONE (12:25)
[2020-10-30 12:32] LABS: HEPATITIS A AB IGM NEGATIVE (NEGATIVE)
[2020-10-30] MEDS: METOCLOPRAMIDE HCL 10MG/2ML VIAL IV SCH ×2 (14:04→17:59)
[2020-10-30] MEDS: PANTOPRAZOLE SODIUM 40 MG/VIAL IV SCH ×2 (15:32→22:20)
[2020-10-30 16:00] VITALS: BP 105/61
[2020-10-30] MEDS ORDERED: DEXTROSE 50% WATER 50ML SYRINGE IV PRN ×2 (17:30→23:30)
[2020-10-30] MEDS ORDERED: CLONIDINE 0.1MG TABLET PO PRN (17:45)
[2020-10-30] MEDS ORDERED: ACETAMINOPHEN 325MG TABLET PO PRN ×2 (17:45)
[2020-10-30] MEDS ORDERED: HYDROCODONE/ACETAMINOPHEN 5/325MG TABLET PO PRN (17:45)
[2020-10-30] MEDS ORDERED: LORAZEPAM 0.5MG TABLET PO PRN (17:45)
[2020-10-30] MEDS ORDERED: ACETAMINOPHEN 650MG SUPP PR PRN ×2 (17:45)
[2020-10-30] MEDS ORDERED: IPRATROPIUM/ALBUTEROL 0.5-3(2.5)MG/3ML NEB HHN PRN (17:45)
[2020-10-30] MEDS: INSULIN GLARGINE UD 100 UNITS/ML SYR SUBCUT SCH (17:58)
[2020-10-30] MEDS: INSULIN LISPRO 100 UNITS/ML SUBCUT SCH ×2 (17:58→21:41)
[2020-10-30 20:00] VITALS: BP 90/66
[2020-10-30] MEDS: BLOOD SUGAR DIAGNOSTIC STRIP TEST SCH (21:38)
[2020-10-30] MEDS: CEFTRIAXONE 1,000 MG in DEXTROSE 5% WATER 50 ML IV SCH (22:21)
[2020-10-30] MEDS ORDERED: SODIUM CHLORIDE 0.9% 1000ML BAG (SEPSIS BOLUS) IV ONE (23:15)
[2020-10-30] MEDS ORDERED: SODIUM CHLORIDE 0.9% 1,000 ML IV SCH (23:15)
[2020-10-30] MEDS ORDERED: INSULIN LISPRO 100 UNITS/ML SUBCUT NR (23:50)
[2020-10-31] VITALS: BP 105/65
[2020-10-31] MEDS: SODIUM CHLORIDE 0.9% 1,000 ML IV SCH ×4 (00:19→20:16)
[2020-10-31] MEDS: METOCLOPRAMIDE HCL 10MG/2ML VIAL IV SCH ×4 (00:21→17:50)
[2020-10-31 01:05] LABS: INR 1.1; PROTHROMBIN TIME 11.7 sec (9.6-11.0)
[2020-10-31 02:11] LABS: BASOPHILS % 0.4 % (0.0-2.0); EOSINOPHILS % 0.1 % (0.0-5.0); HEMATOCRIT. 33.8 % (42.0-52.0); LYMPHOCYTES % 24.2 % (20.0-50.0); MEAN CORPUSCULAR HEMOGLOBIN 27.9 pg (28.0-32.0); MEAN CORPUSCULAR VOLUME 85.9 fL (80.0-94.0); MEAN PLATELET VOLUME 10.6 fl (7.4-10.4); MONOCYTES % 8.6 % (2.0-8.0); NEUTROPHILS % 66.7 % (40.0-76.0); PLATELET 192 x1000/uL (130-400); RED BLOOD CELL COUNT 3.93 mill/uL (4.7-6.1); RED CELL DISTRIBUTION WIDTH 15.7 % (11.6-14.6)
[2020-10-31 02:32] LABS: *AMPHETAMINES SCREEN URINE PRESUMTIVE POSITIVE (NEGATIVE); *BARBITURATES SCREEN URINE NEGATIVE (NEGATIVE); *BENZODIAZEPINES SCREEN URINE NEGATIVE (NEGATIVE); *COCAINE SCREEN URINE NEGATIVE (NEGATIVE)
[2020-10-31 02:33] LABS: CANNABINOID URINE SCREEN PRESUMTIVE POSITIVE (NEGATIVE); METHADONE URINE SCREEN NEGATIVE (NEGATIVE); OPIATES URINE SCREEN NEGATIVE (NEGATIVE); PHENCYCLIDINE URINE SCREEN NEGATIVE (NEGATIVE)
[2020-10-31 04:00] VITALS: BP 145/109
[2020-10-31 06:50] LABS: BASOPHILS % 0.5 % (0.0-2.0); EOSINOPHILS % 0.4 % (0.0-5.0); HEMATOCRIT. 32.8 % (42.0-52.0); HEMOGLOBIN. 10.5 g/dL (14.0-18.0); LYMPHOCYTES % 27.8 % (20.0-50.0); MEAN CORPUSCULAR HEMOGLOBIN 27.2 pg (28.0-32.0); MEAN CORPUSCULAR VOLUME 84.6 fL (80.0-94.0); MEAN PLATELET VOLUME 9.9 fl (7.4-10.4); MONOCYTES % 10.1 % (2.0-8.0); NEUTROPHILS % 61.2 % (40.0-76.0); PLATELET 193 x1000/uL (130-400); RED BLOOD CELL COUNT 3.87 mill/uL (4.7-6.1)
[2020-10-31] MEDS ORDERED: DEXT 5%/0.45% NACL 1000ML 1,000 ML IV SCH (07:00)
[2020-10-31] MEDS: BLOOD SUGAR DIAGNOSTIC STRIP TEST SCH ×6 (07:06→21:00)
[2020-10-31 07:07] LABS: INR 1.1; PROTHROMBIN TIME 11.4 sec (9.6-11.0)
[2020-10-31] MEDS: INSULIN LISPRO 100 UNITS/ML SUBCUT SCH ×4 (07:07→20:13)
[2020-10-31 08:00] VITALS: BP 135/66
[2020-10-31] MEDS: PANTOPRAZOLE SODIUM 40 MG/VIAL IV SCH ×2 (09:02→20:14)
[2020-10-31] MEDS: INSULIN GLARGINE UD 100 UNITS/ML SYR SUBCUT SCH (10:00)
[2020-10-31 11:13] LABS: HEMATOCRIT 30.2 % (42.0-52.0); MEAN CORPUSCULAR HEMOGLOBIN 27.9 pg (28.0-32.0); MEAN CORPUSCULAR VOLUME 83.8 fL (80.0-94.0); PLATELET 188 x1000/uL (130-400); RED BLOOD CELL COUNT 3.61 mill/uL (4.7-6.1); RED CELL DISTRIBUTION WIDTH 15.2 % (11.6-14.6)
[2020-10-31 11:54] LABS: FERRITIN 181 ng/mL (22-322)
[2020-10-31 11:56] LABS: FOLIC ACID (FOLATE) SERUM >20 ng/mL ng/mL (>5.38)
[2020-10-31 12:00] VITALS: BP 130/70
[2020-10-31 12:08] LABS: VITAMIN B12 SERUM 906 pg/mL (211-911)
[2020-10-31] MEDS ORDERED: PROPOFOL 200MG/20ML VIAL IV ONE (12:34)
[2020-10-31] MEDS ORDERED: LIDOCAINE HCL/PF 1% 10 MG/ML 5ML VIAL ONE (12:34)
[2020-10-31] MEDS ORDERED: ONDANSETRON HCL 4MG/2ML INJ IV PRN (12:45)
[2020-10-31] MEDS ORDERED: HYDROMORPHONE HCL/PF 2MG/ML CPJ IV PRN (12:45)
[2020-10-31] MEDS ORDERED: LABETALOL 5MG/ML SYR 20 MG/4 ML SYRINGE IV PRN (12:45)
[2020-10-31] MEDS ORDERED: MEPERIDINE HCL/PF 25MG/ML CPJ IV PRN (12:45)
[2020-10-31] MEDS: DEXT 5%/0.45% NACL 1000ML 1,000 ML IV SCH (14:51)
[2020-10-31] MEDS ORDERED: POTASSIUM CHLORIDE IV NR (15:00)
[2020-10-31] MEDS ORDERED: SODIUM CHLORIDE 0.9% IV NR (15:00)
[2020-10-31] MEDS ORDERED: POTASSIUM CHLORIDE INJ 40 MEQ in SODIUM CHLORIDE 0.9% 500 ML IV NR (15:00)
[2020-10-31 15:52] LABS: HEMATOCRIT 30.4 % (42.0-52.0); HEMOGLOBIN 9.9 g/dL (14.0-18.0)
[2020-10-31 16:00] VITALS: BP 136/60
[2020-10-31 16:11] LABS: CHLORIDE 111 mEq/L (98-107)
[2020-10-31] MEDS ORDERED: METO-293 MT (16:42)
[2020-10-31] MEDS ORDERED: PROT40 PO (16:42)
[2020-10-31] MEDS ORDERED: SUCR1TAB30 PO (16:42)
[2020-10-31] MEDS: SUCRALFATE 1 G/10 ML UDC PO SCH (17:50)
[2020-10-31 20:00] VITALS: BP 129/64
[2020-10-31] MEDS: CEFTRIAXONE 1,000 MG in DEXTROSE 5% WATER 50 ML IV SCH (20:14)
[2020-10-31 21:05] LABS: HEMATOCRIT 29.5 % (42.0-52.0); HEMOGLOBIN 9.8 g/dL (14.0-18.0); MEAN CORPUSCULAR HEMOGLOBIN 28.5 pg (28.0-32.0); MEAN CORPUSCULAR VOLUME 86.4 fL (80.0-94.0); PLATELET 179 x1000/uL (130-400); RED BLOOD CELL COUNT 3.42 mill/uL (4.7-6.1); RED CELL DISTRIBUTION WIDTH 15.6 % (11.6-14.6)
[2020-10-31 23:10] LABS: HEMATOCRIT 28.7 % (42.0-52.0); HEMOGLOBIN 9.6 g/dL (14.0-18.0)
[2020-11-01] VITALS: BP 139/62
[2020-11-01 00:49] LABS: HEMATOCRIT 26.8 % (42.0-52.0); HEMOGLOBIN 8.8 g/dL (14.0-18.0); MEAN CORPUSCULAR HEMOGLOBIN 27.8 pg (28.0-32.0); MEAN CORPUSCULAR VOLUME 84.6 fL (80.0-94.0); PLATELET 167 x1000/uL (130-400); RED BLOOD CELL COUNT 3.17 mill/uL (4.7-6.1); RED CELL DISTRIBUTION WIDTH 15.2 % (11.6-14.6)
[2020-11-01] MEDS: METOCLOPRAMIDE HCL 10MG/2ML VIAL IV SCH ×3 (01:07→14:14)
[2020-11-01] MEDS: SUCRALFATE 1 G/10 ML UDC PO SCH ×3 (01:07→14:14)
[2020-11-01] MEDS: ONDANSETRON HCL 4MG/2ML INJ IV PRN ×2 (02:56→09:36)
[2020-11-01] MEDS: SODIUM CHLORIDE 0.9% 1,000 ML IV SCH ×2 (02:57→09:37)
[2020-11-01 04:00] VITALS: BP 184/95
[2020-11-01 04:30] LABS: BASOPHILS % 0.3 % (0.0-2.0); EOSINOPHILS % 0.4 % (0.0-5.0); HEMATOCRIT. 29.4 % (42.0-52.0); HEMOGLOBIN. 9.6 g/dL (14.0-18.0); LYMPHOCYTES % 17.9 % (20.0-50.0); MEAN CORPUSCULAR HEMOGLOBIN 27.7 pg (28.0-32.0); MEAN CORPUSCULAR VOLUME 84.7 fL (80.0-94.0); MEAN PLATELET VOLUME 9.5 fl (7.4-10.4); NEUTROPHILS % 74.4 % (40.0-76.0); PLATELET 178 x1000/uL (130-400); RED BLOOD CELL COUNT 3.47 mill/uL (4.7-6.1); RED CELL DISTRIBUTION WIDTH 15.3 % (11.6-14.6)
[2020-11-01 04:35] LABS: CHLORIDE 112 mEq/L (98-107)
[2020-11-01] MEDS: INSULIN LISPRO 100 UNITS/ML SUBCUT SCH ×2 (06:43→12:40)
[2020-11-01] MEDS: BLOOD SUGAR DIAGNOSTIC STRIP TEST SCH ×2 (06:43→13:00)
[2020-11-01 08:00] VITALS: BP 178/73
[2020-11-01] MEDS: PANTOPRAZOLE SODIUM 40 MG/VIAL IV SCH (09:36)
[2020-11-01] MEDS: INSULIN GLARGINE UD 100 UNITS/ML SYR SUBCUT SCH (11:10)
[2020-11-01 11:43] LABS: HEMATOCRIT 29.2 % (42.0-52.0); HEMOGLOBIN 9.3 g/dL (14.0-18.0); MEAN CORPUSCULAR HEMOGLOBIN 27.5 pg (28.0-32.0); MEAN CORPUSCULAR VOLUME 86.6 fL (80.0-94.0); PLATELET 180 x1000/uL (130-400); RED BLOOD CELL COUNT 3.38 mill/uL (4.7-6.1); RED CELL DISTRIBUTION WIDTH 15.5 % (11.6-14.6)
[2020-11-01 12:00] VITALS: BP 109/70
[2020-11-01 12:45] VITALS: BP 109/70
[2020-11-01] MEDS: DEXT 5%/0.45% NACL 1000ML 1,000 ML IV SCH (13:15)
== END 2020-11-01 16:37 | disposition home or self-care (01) | DRG 242 ==
LOC: ER 19:02 → 8WST 23:31 → ENRESERV 10-30 07:09
PROVIDERS: ADMIT Internal Medicine; ATTEND Internal Medicine
PROC: 0DB78ZX Excision of Stomach, Pylorus, Via Natural or Artificial Opening Endoscopic, Diagnostic (ICD-10-PCS; principal; 2020-10-31)
DX: K22.11 Ulcer of esophagus with bleeding (principal); E87.2 Acidosis; R65.10 Systemic inflammatory response syndrome (SIRS) of non-infectious origin without acute organ dysfunction; E11.65 Type 2 diabetes mellitus with hyperglycemia; E87.1 Hypo-osmolality and hyponatremia; S09.90XA Unspecified injury of head, initial encounter; E87.5 Hyperkalemia; E04.2 Nontoxic multinodular goiter; D64.9 Anemia, unspecified; E88.09 Other disorders of plasma-protein metabolism, not elsewhere classified; R80.9 Proteinuria, unspecified; R74.01 Elevation of levels of liver transaminase levels; D72.829 Elevated white blood cell count, unspecified; W18.11XA Fall from or off toilet without subsequent striking against object, initial encounter; Z20.822 Contact with and (suspected) exposure to COVID-19; R07.89 Other chest pain; K29.80 Duodenitis without bleeding; K29.70 Gastritis, unspecified, without bleeding; Z79.899 Other long term (current) drug therapy; Z79.4 Long term (current) use of insulin; Y93.89 Activity, other specified; Y92.89 Other specified places as the place of occurrence of the external cause; Y99.8 Other external cause status; R81 Glycosuria
CPT/HCPCS: 36415; 71045; 71275; 74220; 80048; 80053; 80076; 80305; 81003; 82607; 82728; 82746; 82962; 83036; 83540; 83550; 83605; 83880; 84145; 84466; 84484; 85014; 85018; 85025; 85027; 85044; 85379; 86705; 86709; 86803; 86850; 86900; 87340; 87426; 88305; 88313; 93005; 99291; C9113; J0696; J1650; J1815; J2270; J2405; J2543; J2704; J2765; J3480; J3490; J7030; J7040; J7042; J7060; Q9963; Q9967

== ENCOUNTER 2020-12-07 22:39 | Emergency (ER) | payer MEDICAID ==
[~2020-12-07] VITALS: Ht 193 cm; Wt 109.0 kg
[~2020-12-07 22:39] MED LIST changes: -BENA5TAB6 MT; -METF-416 MT; +METO-293 MT
[2020-12-07] MEDS ORDERED: ONDANSETRON HCL 4MG/2ML INJ IV ONE (23:15)
[2020-12-07] MEDS ORDERED: SODIUM CHLORIDE 0.9% 1,000 ML IV ONE (23:15)
[2020-12-08 05:25] LABS: BASOPHILS % 0.2 % (0.0-2.0); HEMATOCRIT. 40.4 % (42.0-52.0); HEMOGLOBIN. 12.5 g/dL (14.0-18.0); LYMPHOCYTES % 9.4 % (20.0-50.0); MEAN CORPUSCULAR HEMOGLOBIN 26.2 pg (28.0-32.0); MEAN CORPUSCULAR VOLUME 84.6 fL (80.0-94.0); MEAN PLATELET VOLUME 9.6 fl (7.4-10.4); MONOCYTES % 4.5 % (2.0-8.0); NEUTROPHILS % 85.9 % (40.0-76.0); PLATELET 335 x1000/uL (130-400); RED BLOOD CELL COUNT 4.77 mill/uL (4.7-6.1); RED CELL DISTRIBUTION WIDTH 17.1 % (11.6-14.6)
[2020-12-08 05:41] LABS: CHLORIDE 101 mEq/L (98-107)
[2020-12-08] MEDS ORDERED: ONDANSETRON HCL 4MG/2ML INJ IV NR (05:45)
[2020-12-08] MEDS ORDERED: ONDANSETRON HCL 4MG/2ML INJ IV ONE (06:45)
[2020-12-08] MEDS ORDERED: MORPHINE SULFATE 4 MG/ML CPJ (NOT FOR IM USE) IV ONE (06:45)
[2020-12-08 10:16] LABS: *AMPHETAMINES SCREEN URINE PRESUMTIVE POSITIVE (NEGATIVE); *BARBITURATES SCREEN URINE NEGATIVE (NEGATIVE); *BENZODIAZEPINES SCREEN URINE NEGATIVE (NEGATIVE); *COCAINE SCREEN URINE NEGATIVE (NEGATIVE)
[2020-12-08 10:17] LABS: CANNABINOID URINE SCREEN PRESUMTIVE POSITIVE (NEGATIVE); METHADONE URINE SCREEN NEGATIVE (NEGATIVE); OPIATES URINE SCREEN PRESUMTIVE POSITIVE (NEGATIVE); PHENCYCLIDINE URINE SCREEN NEGATIVE (NEGATIVE)
[2020-12-08] MEDS ORDERED: ONDA4TAB5 MT (10:36)
[2020-12-08] MEDS ORDERED: OMEP20CA14 MT (10:36)
[2020-12-08 11:30] VITALS: BP 152/82
== END 2020-12-08 12:30 | disposition home or self-care (01) ==
LOC: ER 23:38
DX: R10.13 Epigastric pain (principal); E11.9 Type 2 diabetes mellitus without complications; F15.10 Other stimulant abuse, uncomplicated; R11.10 Vomiting, unspecified
CPT/HCPCS: 36415; 71045; 80053; 80305; 83690; 85025; 93005; 96361; 96374; 96375; 96376; 99285; J2270; J2405; J7030

== ENCOUNTER 2021-03-12 11:35 | Emergency (ER) | payer MEDICAID, OTHER ==
[~2021-03-12] VITALS: Ht 193 cm; Wt 117.0 kg
[~2021-03-12 11:35] MED LIST changes: +OMEP20CA14 MT; +ONDA4TAB5 MT
[2021-03-12 15:19] LABS: BASOPHILS % 0.4 % (0.0-2.0); EOSINOPHILS % 0.2 % (0.0-5.0); HEMATOCRIT. 41.1 % (42.0-52.0); HEMOGLOBIN. 13.5 g/dL (14.0-18.0); LYMPHOCYTES % 16.6 % (20.0-50.0); MEAN CORPUSCULAR HEMOGLOBIN 25.3 pg (28.0-32.0); MEAN CORPUSCULAR VOLUME 77.1 fL (80.0-94.0); MEAN PLATELET VOLUME 8.7 fl (7.4-10.4); MONOCYTES % 4.1 % (2.0-8.0); NEUTROPHILS % 78.7 % (40.0-76.0); PLATELET 264 x1000/uL (130-400); RED BLOOD CELL COUNT 5.32 mill/uL (4.7-6.1)
[2021-03-12 15:24] LABS: CHLORIDE 106 mEq/L (98-107)
[2021-03-12 15:30] LABS: ETHANOL BLOOD < 10 mg/dL
[2021-03-12 15:34] LABS: CLARITY URINE CLEAR (CLEAR); COLOR URINE YELLOW (YELLOW); KETONES URINE 3+ (NEGATIVE); LEUKOCYTE ESTERASE URINE NEGATIVE (NEGATIVE); NITRITE URINE NEGATIVE (NEGATIVE); OCCULT BLOOD URINE 1+ (NEGATIVE); PROTEIN URINE 3+ (NEGATIVE); SPECIFIC GRAVITY URINE 1.031 (1.005-1.030)
[2021-03-12] MEDS ORDERED: ONDANSETRON HCL 4MG/2ML INJ IV STA (17:43)
[2021-03-12] MEDS ORDERED: KETOROLAC 30MG/ML VIAL IV STA (17:43)
[2021-03-12] MEDS ORDERED: SODIUM CHLORIDE 0.9% 1,000 ML IV ONE ×2 (17:45→18:00)
[2021-03-12 18:17] LABS: PHENCYCLIDINE URINE SCREEN NEGATIVE (NEGATIVE)
[2021-03-12 18:18] LABS: *AMPHETAMINES SCREEN URINE PRESUMTIVE POSITIVE (NEGATIVE); *BARBITURATES SCREEN URINE NEGATIVE (NEGATIVE); *BENZODIAZEPINES SCREEN URINE NEGATIVE (NEGATIVE); *COCAINE SCREEN URINE NEGATIVE (NEGATIVE); CANNABINOID URINE SCREEN PRESUMTIVE POSITIVE (NEGATIVE); METHADONE URINE SCREEN NEGATIVE (NEGATIVE); OPIATES URINE SCREEN NEGATIVE (NEGATIVE)
[2021-03-12] MEDS ORDERED: ONDA4TAB5 MT (18:52)
[2021-03-12] MEDS ORDERED: TRAM50TA3 MT (18:53)
[2021-03-12 19:17] VITALS: BP 156/102
== END 2021-03-12 19:26 | disposition home or self-care (01) ==
LOC: ER 11:35
DX: F15.10 Other stimulant abuse, uncomplicated (principal); R10.13 Epigastric pain; E11.9 Type 2 diabetes mellitus without complications; Z79.4 Long term (current) use of insulin; Z98.890 Other specified postprocedural states
CPT/HCPCS: 36415; 71045; 74176; 80048; 80076; 80305; 80320; 81003; 83690; 84484; 85025; 93005; 96361; 96374; 96375; 99285; J1885; J2405; J7030; G0480

== ENCOUNTER 2021-10-01 23:20 | Inpatient (IN) | payer MEDICAID, OTHER ==
[~2021-10-01] VITALS: Ht 193 cm; Wt 132.9 kg
[~2021-10-01 23:20] MED LIST changes: +TRAM50TA3 MT
[2021-10-02] MEDS ORDERED: ACETAMINOPHEN 325MG TABLET PO STA (00:14)
[2021-10-02] MEDS ORDERED: SODIUM CHLORIDE 0.9% 1,000 ML IV ONE (00:15)
[2021-10-02 01:27] LABS: BASOPHILS % 0.3 % (0.0-2.0); EOSINOPHILS % 0.9 % (0.0-5.0); HEMOGLOBIN. 12.6 g/dL (14.0-18.0); LYMPHOCYTES % 9.1 % (20.0-50.0); MEAN CORPUSCULAR HEMOGLOBIN 27.7 pg (28.0-32.0); MEAN CORPUSCULAR VOLUME 85.9 fL (80.0-94.0); MEAN PLATELET VOLUME 8.8 fl (7.4-10.4); MONOCYTES % 8.2 % (2.0-8.0); NEUTROPHILS % 81.5 % (40.0-76.0); PLATELET 291 x1000/uL (130-400); RED BLOOD CELL COUNT 4.54 mill/uL (4.7-6.1); RED CELL DISTRIBUTION WIDTH 15.6 % (11.6-14.6)
[2021-10-02 01:34] LABS: CHLORIDE 100 mEq/L (98-107)
[2021-10-02] MEDS ORDERED: INSULIN REGULAR (HUMULIN R) 300UNITS/3ML VIAL SUBCUT ONE (02:00)
[2021-10-02] MEDS ORDERED: VANCOMYCIN 1G PREMIX 200 ML IV ONE (02:30)
[2021-10-02] MEDS ORDERED: PIPERACILLIN/TAZ 3.375G PREMIX 50 ML IV ONE (02:30)
[2021-10-02] MEDS ORDERED: SODIUM CHLORIDE 0.9% 1000ML BAG (SEPSIS BOLUS) IV ONE (02:30)
[2021-10-02] MEDS ORDERED: INSULIN LISPRO 100 UNITS/ML SUBCUT SCH (03:15)
[2021-10-02] MEDS ORDERED: DEXTROSE 50% WATER 50ML SYRINGE IV PRN (11:15)
[2021-10-02] MEDS: BLOOD SUGAR DIAGNOSTIC STRIP TEST SCH ×3 (11:23→20:20)
[2021-10-02] MEDS: INSULIN LISPRO 100 UNITS/ML SUBCUT SCH ×4 (11:23→20:29)
[2021-10-02] MEDS ORDERED: LEVOFLOXACIN 500MG PREMIX 100 ML IV SCH (12:00)
[2021-10-02] MEDS ORDERED: INSULIN GLARGINE UD 100 UNITS/ML SYR SUBCUT NR ×2 (12:00→14:00)
[2021-10-02 12:17] VITALS: BP 123/59
[2021-10-02 12:18] VITALS: BP 123/59
[2021-10-02] MEDS ORDERED: INSU100I24 SQ (13:23)
[2021-10-02 16:00] VITALS: BP 145/72
[2021-10-02 16:53] LABS: *AMPHETAMINES SCREEN URINE PRESUMTIVE POSITIVE (NEGATIVE); *BARBITURATES SCREEN URINE NEGATIVE (NEGATIVE); *BENZODIAZEPINES SCREEN URINE NEGATIVE (NEGATIVE); METHADONE URINE SCREEN NEGATIVE (NEGATIVE); OPIATES URINE SCREEN PRESUMTIVE POSITIVE (NEGATIVE); PHENCYCLIDINE URINE SCREEN NEGATIVE (NEGATIVE)
[2021-10-02 16:54] LABS: *COCAINE SCREEN URINE NEGATIVE (NEGATIVE)
[2021-10-02 17:04] LABS: CANNABINOID URINE SCREEN PRESUMTIVE POSITIVE (NEGATIVE)
[2021-10-02] MEDS: VANCOMYCIN 1250MG in DEXTROSE 5% WATER 250ML IV SCH (17:10)
[2021-10-02] MEDS ORDERED: INSULIN LISPRO 100 UNITS/ML SUBCUT ONE (17:14)
[2021-10-02] MEDS ORDERED: VANCOMYCIN 1250MG in DEXTROSE 5% WATER 250ML IV SCH ×4 (18:00)
[2021-10-02 20:00] VITALS: BP 146/79
[2021-10-02] MEDS: INSULIN GLARGINE UD 100 UNITS/ML SYR SUBCUT SCH (22:00)
[2021-10-03] VITALS: BP 138/77
[2021-10-03 04:00] VITALS: BP 146/73
[2021-10-03] MEDS: VANCOMYCIN 1250MG in DEXTROSE 5% WATER 250ML IV SCH ×2 (05:53→17:23)
[2021-10-03] MEDS: BLOOD SUGAR DIAGNOSTIC STRIP TEST SCH ×4 (06:31→20:20)
[2021-10-03 07:01] LABS: CHLORIDE 102 mEq/L (98-107)
[2021-10-03 07:10] LABS: BASOPHILS % 0.2 % (0.0-2.0); EOSINOPHILS % 0.6 % (0.0-5.0); HEMATOCRIT. 37.4 % (42.0-52.0); HEMOGLOBIN. 12.4 g/dL (14.0-18.0); LYMPHOCYTES % 11.9 % (20.0-50.0); MEAN CORPUSCULAR HEMOGLOBIN 27.5 pg (28.0-32.0); MEAN CORPUSCULAR VOLUME 83.3 fL (80.0-94.0); MEAN PLATELET VOLUME 9.2 fl (7.4-10.4); MONOCYTES % 7.4 % (2.0-8.0); NEUTROPHILS % 79.9 % (40.0-76.0); PLATELET 283 x1000/uL (130-400); RED BLOOD CELL COUNT 4.49 mill/uL (4.7-6.1); RED CELL DISTRIBUTION WIDTH 15.2 % (11.6-14.6)
[2021-10-03 08:00] VITALS: BP 117/91
[2021-10-03] MEDS: INSULIN LISPRO 100 UNITS/ML SUBCUT SCH ×4 (08:29→20:28)
[2021-10-03] MEDS: LEVOFLOXACIN 500MG PREMIX 100 ML IV SCH (10:44)
[2021-10-03] MEDS: INSULIN GLARGINE UD 100 UNITS/ML SYR SUBCUT SCH ×2 (10:44→21:34)
[2021-10-03 12:00] VITALS: BP 158/79
[2021-10-03 16:00] VITALS: BP 119/68
[2021-10-03 20:00] VITALS: BP 118/72
[2021-10-04] VITALS: BP 113/76
[2021-10-04 04:00] VITALS: BP 125/85
[2021-10-04 04:08] LABS: CHLORIDE 102 mEq/L (98-107)
[2021-10-04] MEDS: BLOOD SUGAR DIAGNOSTIC STRIP TEST SCH ×3 (06:04→16:40)
[2021-10-04] MEDS: VANCOMYCIN 1250MG in DEXTROSE 5% WATER 250ML IV SCH (06:04)
[2021-10-04] MEDS: INSULIN LISPRO 100 UNITS/ML SUBCUT SCH ×3 (06:22→17:10)
[2021-10-04 08:00] VITALS: BP 108/60
[2021-10-04] MEDS: INSULIN GLARGINE UD 100 UNITS/ML SYR SUBCUT SCH (10:03)
[2021-10-04] MEDS: LEVOFLOXACIN 500MG PREMIX 100 ML IV SCH (10:03)
[2021-10-04] MEDS ORDERED: LANTUSUD SUBCUT (11:13)
[2021-10-04 12:00] VITALS: BP 127/71
[2021-10-04] MEDS ORDERED: LEVO500T89 MT ×2 (13:27→14:22)
[2021-10-04] MEDS ORDERED: SULF1TAB48 MT ×2 (13:27→14:22)
[2021-10-04 15:04] VITALS: BP 127/71
[2021-10-04 16:00] VITALS: BP 120/72
[2021-10-04] MEDS ORDERED: VANCOMYCIN 1500MG in DEXTROSE 5% WATER 250ML IV SCH (21:00)
== END 2021-10-04 17:32 | disposition home or self-care (01) | DRG 710 ==
LOC: ER 23:20 → MICUSO 10-02 02:29 → 7EST 10-02 12:00
PROVIDERS: ADMIT Internal Medicine; ATTEND Internal Medicine
PROC: 0KBW0ZZ Excision of Left Foot Muscle, Open Approach (ICD-10-PCS; principal; 2021-10-03)
DX: A41.9 Sepsis, unspecified organism (principal); E44.0 Moderate protein-calorie malnutrition; E11.621 Type 2 diabetes mellitus with foot ulcer; E87.1 Hypo-osmolality and hyponatremia; L97.529 Non-pressure chronic ulcer of other part of left foot with unspecified severity; L03.116 Cellulitis of left lower limb; E11.628 Type 2 diabetes mellitus with other skin complications; D64.9 Anemia, unspecified; F12.90 Cannabis use, unspecified, uncomplicated; Z20.822 Contact with and (suspected) exposure to COVID-19; F11.90 Opioid use, unspecified, uncomplicated; L85.9 Epidermal thickening, unspecified; E11.65 Type 2 diabetes mellitus with hyperglycemia; F15.90 Other stimulant use, unspecified, uncomplicated; F17.210 Nicotine dependence, cigarettes, uncomplicated; Z82.49 Family history of ischemic heart disease and other diseases of the circulatory system; Z68.35 Body mass index [BMI] 35.0-35.9, adult; Z79.899 Other long term (current) drug therapy; Z71.51 Drug abuse counseling and surveillance of drug abuser
CPT/HCPCS: 36415; 71045; 73630; 73718; 80048; 80053; 80202; 80305; 82962; 83605; 84145; 85025; 87070; 87075; 87077; 87186; 87426; 93005; 99285; C1893; J1815; J1956; J2543; J3370; J7030; J7060

== ENCOUNTER 2021-11-03 17:04 | Inpatient (IN) | payer OTHER ==
[~2021-11-03] VITALS: Ht 193 cm; Wt 111.1 kg
[~2021-11-03 17:04] MED LIST changes: +CEFT2FRO5 IV; -INSU100I24 SQ; +LANTUSUD SUBCUT; +LEVO500T89 MT; +SULF1TAB48 MT
[2021-11-03 20:08] LABS: BASOPHILS % 0.2 % (0.0-2.0); EOSINOPHILS % 0.3 % (0.0-5.0); HEMATOCRIT. 36.1 % (42.0-52.0); HEMOGLOBIN. 11.6 g/dL (14.0-18.0); LYMPHOCYTES % 12.9 % (20.0-50.0); MEAN CORPUSCULAR HEMOGLOBIN 27.4 pg (28.0-32.0); MEAN CORPUSCULAR VOLUME 85.3 fL (80.0-94.0); MEAN PLATELET VOLUME 8.1 fl (7.4-10.4); MONOCYTES % 3.8 % (2.0-8.0); NEUTROPHILS % 82.8 % (40.0-76.0); PLATELET 306 x1000/uL (130-400); RED BLOOD CELL COUNT 4.23 mill/uL (4.7-6.1)
[2021-11-03 20:12] LABS: CHLORIDE 108 mEq/L (98-107)
[2021-11-03] MEDS ORDERED: ONDANSETRON HCL 4MG/2ML INJ IV ONE (20:30)
[2021-11-03] MEDS ORDERED: VANCOMYCIN 1G PREMIX 200 ML IV ONE (20:45)
[2021-11-03] MEDS ORDERED: PIPERACILLIN/TAZ 3.375G PREMIX 50 ML IV ONE (20:45)
[2021-11-03] MEDS ORDERED: VANCOMYCIN 1GM PMX (XELLIA) 200 ML IV NR (21:00)
[2021-11-03] MEDS ORDERED: SODIUM CHLORIDE 0.9% 1000ML BAG (SEPSIS BOLUS) IV ONE (21:45)
[2021-11-04 09:22] VITALS: BP 131/69
[2021-11-04] MEDS ORDERED: CEFTRIAXONE 2 G PREMIX 50 ML IV SCH (09:45)
[2021-11-04] MEDS ORDERED: ONDANSETRON HCL 4MG/2ML INJ IV PRN (09:45)
[2021-11-04] MEDS ORDERED: DEXTROSE 50% WATER 50ML SYRINGE IV PRN (09:45)
[2021-11-04] MEDS ORDERED: HYDROCODONE/ACETAMINOPHEN 5/325MG TABLET PO PRN (09:45)
[2021-11-04 09:46] VITALS: BP 131/69
[2021-11-04] MEDS: OMEPRAZOLE 20MG CAPSULE EXTENDED RELEASE PO SCH (09:58)
[2021-11-04] MEDS: CEFTRIAXONE 2 G in DEXTROSE 5% WATER 50 ML IV SCH (11:09)
[2021-11-04] MEDS: BLOOD SUGAR DIAGNOSTIC STRIP TEST SCH ×3 (11:20→21:15)
[2021-11-04 12:23] VITALS: BP 155/85
[2021-11-04] MEDS: INSULIN LISPRO 100 UNITS/ML SUBCUT SCH ×3 (12:31→21:00)
[2021-11-04 16:07] VITALS: BP 139/80
[2021-11-04 20:00] VITALS: BP 131/78
[2021-11-05] VITALS (7 sets, daily range): BP systolic 118–167; BP diastolic 50–90
[2021-11-05] MEDS: INSULIN LISPRO 100 UNITS/ML SUBCUT SCH ×4 (06:27→21:00)
[2021-11-05] MEDS: BLOOD SUGAR DIAGNOSTIC STRIP TEST SCH ×4 (06:27→21:30)
[2021-11-05] MEDS: OMEPRAZOLE 20MG CAPSULE EXTENDED RELEASE PO SCH (06:27)
[2021-11-05 07:33] LABS: CHLORIDE 110 mEq/L (98-107)
[2021-11-05 07:38] LABS: BASOPHILS % 0.5 % (0.0-2.0); EOSINOPHILS % 2.5 % (0.0-5.0); HEMATOCRIT. 32.9 % (42.0-52.0); HEMOGLOBIN. 10.6 g/dL (14.0-18.0); LYMPHOCYTES % 28.3 % (20.0-50.0); MEAN CORPUSCULAR HEMOGLOBIN 27.7 pg (28.0-32.0); MEAN CORPUSCULAR VOLUME 85.9 fL (80.0-94.0); MEAN PLATELET VOLUME 8.3 fl (7.4-10.4); MONOCYTES % 9.6 % (2.0-8.0); NEUTROPHILS % 59.1 % (40.0-76.0); PLATELET 274 x1000/uL (130-400); RED BLOOD CELL COUNT 3.83 mill/uL (4.7-6.1); RED CELL DISTRIBUTION WIDTH 16.2 % (11.6-14.6)
[2021-11-05] MEDS: CEFTRIAXONE 2 G in DEXTROSE 5% WATER 50 ML IV SCH (10:16)
[2021-11-05] MEDS ORDERED: INSULIN LISPRO 100 UNITS/ML SUBCUT ONE (17:24)
[2021-11-06] VITALS: BP 127/73
[2021-11-06] MEDS: SODIUM CHLORIDE 0.45% 1,000 ML IV SCH ×2 (00:39→16:16)
[2021-11-06 02:29] LABS: *AMPHETAMINES SCREEN URINE NEGATIVE (NEGATIVE); *BARBITURATES SCREEN URINE NEGATIVE (NEGATIVE); *BENZODIAZEPINES SCREEN URINE NEGATIVE (NEGATIVE); *COCAINE SCREEN URINE NEGATIVE (NEGATIVE); METHADONE URINE SCREEN NEGATIVE (NEGATIVE); OPIATES URINE SCREEN NEGATIVE (NEGATIVE)
[2021-11-06 02:30] LABS: CANNABINOID URINE SCREEN PRESUMTIVE POSITIVE (NEGATIVE); PHENCYCLIDINE URINE SCREEN NEGATIVE (NEGATIVE)
[2021-11-06 04:00] VITALS: BP 143/71
[2021-11-06] MEDS: BLOOD SUGAR DIAGNOSTIC STRIP TEST SCH ×4 (06:23→21:30)
[2021-11-06] MEDS: INSULIN LISPRO 100 UNITS/ML SUBCUT SCH ×4 (06:23→21:50)
[2021-11-06] MEDS ORDERED: BUPIVACAINE HCL/PF 0.5% (5MG/ML) 30ML ONE (07:18)
[2021-11-06] MEDS ORDERED: VANCOMYCIN HCL 1 GM/VIAL ONE (07:18)
[2021-11-06] MEDS ORDERED: POLYMYXIN B SULFATE 500000 UNITS/VIAL ONE (07:18)
[2021-11-06] MEDS ORDERED: BACITRACIN 15GM TUBE TOP ONE (07:18)
[2021-11-06] MEDS ORDERED: FENTANYL CITRATE/PF 50MCG/ML 2ML VIAL ONE (07:46)
[2021-11-06] MEDS ORDERED: PROPOFOL 200MG/20ML VIAL IV ONE (07:46)
[2021-11-06] MEDS ORDERED: MIDAZOLAM HCL 2 MG/2 ML VIAL ONE (07:46)
[2021-11-06] MEDS ORDERED: CEFAZOLIN SODIUM 1000MG/VIAL ONE (07:47)
[2021-11-06] MEDS ORDERED: DEXAMETHASONE 4MG/ML 1ML VIAL ONE (07:47)
[2021-11-06] MEDS ORDERED: METOCLOPRAMIDE HCL 10MG/2ML VIAL ONE (08:18)
[2021-11-06] MEDS ORDERED: ONDANSETRON HCL 4MG/2ML INJ ONE (08:18)
[2021-11-06] MEDS ORDERED: MEPERIDINE HCL/PF 25MG/ML CPJ IV PRN (08:30)
[2021-11-06] MEDS ORDERED: HYDROMORPHONE HCL/PF 2MG/ML CPJ IV PRN (08:30)
[2021-11-06] MEDS ORDERED: SODIUM CHLORIDE 0.9% 1,000 ML IV SCH (08:30)
[2021-11-06] MEDS ORDERED: ONDANSETRON HCL 4MG/2ML INJ IV PRN (08:30)
[2021-11-06] MEDS ORDERED: KETOROLAC 30MG/ML VIAL ONE (09:06)
[2021-11-06] MEDS ORDERED: EPHEDRINE SULFATE 50MG/ML VIAL ONE (09:06)
[2021-11-06] MEDS: CEFTRIAXONE 2 G in DEXTROSE 5% WATER 50 ML IV SCH (11:52)
[2021-11-06 12:00] VITALS: BP 147/78
[2021-11-06] MEDS: FAMOTIDINE 20MG TABLET PO SCH ×2 (12:21→21:30)
[2021-11-06] MEDS ORDERED: METF-416 MT (13:49)
[2021-11-06] MEDS ORDERED: GLIP5TAB12 MT (13:49)
[2021-11-06] MEDS: HYDROCODONE/ACETAMINOPHEN 5/325MG TABLET PO PRN (14:30)
[2021-11-06 16:00] VITALS: BP 141/75
[2021-11-06 20:00] VITALS: BP 135/69
[2021-11-07] VITALS: BP 105/83
[2021-11-07] MEDS: HYDROCODONE/ACETAMINOPHEN 5/325MG TABLET PO PRN ×3 (00:35→14:19)
[2021-11-07 04:00] VITALS: BP 120/56
[2021-11-07] MEDS: BLOOD SUGAR DIAGNOSTIC STRIP TEST SCH ×4 (06:16→21:06)
[2021-11-07] MEDS: INSULIN LISPRO 100 UNITS/ML SUBCUT SCH ×4 (06:32→21:06)
[2021-11-07 08:00] VITALS: BP 151/75
[2021-11-07] MEDS: FAMOTIDINE 20MG TABLET PO SCH ×2 (08:39→21:02)
[2021-11-07] MEDS: SODIUM CHLORIDE 0.45% 1,000 ML IV SCH ×2 (08:39→23:21)
[2021-11-07] MEDS ORDERED: POTASSIUM CHLORIDE 20MEQ TABLET SR PO ONE ×2 (11:13→11:15)
[2021-11-07] MEDS: CEFTRIAXONE 2 G in DEXTROSE 5% WATER 50 ML IV SCH (11:33)
[2021-11-07 12:00] VITALS: BP 151/79
[2021-11-07 16:00] VITALS: BP 139/77
[2021-11-07 20:00] VITALS: BP 135/81
[2021-11-08] VITALS: BP 136/78
[2021-11-08 04:00] VITALS: BP 133/78
[2021-11-08] MEDS: BLOOD SUGAR DIAGNOSTIC STRIP TEST SCH ×4 (05:53→21:00)
[2021-11-08] MEDS: INSULIN LISPRO 100 UNITS/ML SUBCUT SCH ×4 (05:54→21:29)
[2021-11-08 08:00] VITALS: BP 132/79
[2021-11-08] MEDS: FAMOTIDINE 20MG TABLET PO SCH ×2 (08:38→21:26)
[2021-11-08 12:00] VITALS: BP 159/76
[2021-11-08] MEDS: CEFTRIAXONE 2 G in DEXTROSE 5% WATER 50 ML IV SCH (12:52)
[2021-11-08 16:00] VITALS: BP 123/81
[2021-11-08] MEDS: SODIUM CHLORIDE 0.45% 1,000 ML IV SCH (17:45)
[2021-11-08 20:00] VITALS: BP 127/76
[2021-11-08] MEDS: HYDROCODONE/ACETAMINOPHEN 5/325MG TABLET PO PRN (21:27)
[2021-11-09] VITALS: BP 125/77
[2021-11-09 04:00] VITALS: BP 135/72
[2021-11-09] MEDS: BLOOD SUGAR DIAGNOSTIC STRIP TEST SCH ×4 (06:36→21:16)
[2021-11-09] MEDS: INSULIN LISPRO 100 UNITS/ML SUBCUT SCH ×4 (07:10→21:00)
[2021-11-09 08:00] VITALS: BP 125/73
[2021-11-09] MEDS: FAMOTIDINE 20MG TABLET PO SCH ×2 (09:08→22:54)
[2021-11-09] MEDS: CEFTRIAXONE 2 G in DEXTROSE 5% WATER 50 ML IV SCH (10:37)
[2021-11-09 12:00] VITALS: BP 173/81
[2021-11-09] MEDS: HYDROCODONE/ACETAMINOPHEN 5/325MG TABLET PO PRN ×2 (12:11→17:45)
[2021-11-09] MEDS: SODIUM CHLORIDE 0.45% 1,000 ML IV SCH (13:48)
[2021-11-09 16:00] VITALS: BP 178/69
[2021-11-09] MEDS ORDERED: CLONIDINE 0.1MG TABLET PO PRN (16:30)
[2021-11-09 20:00] VITALS: BP 119/63
[2021-11-09] MEDS ORDERED: NALOXONE HCL 0.4MG/ML VIAL IV PRN (20:00)
[2021-11-09] MEDS: INSULIN GLARGINE 100 UNITS/ML SUBCUT SCH (22:54)
[2021-11-10] VITALS: BP 121/77
[2021-11-10 04:00] VITALS: BP 131/69
[2021-11-10] MEDS: BLOOD SUGAR DIAGNOSTIC STRIP TEST SCH ×4 (06:09→21:37)
[2021-11-10] MEDS: INSULIN LISPRO 100 UNITS/ML SUBCUT SCH ×4 (06:10→21:36)
[2021-11-10 08:00] VITALS: BP 138/78
[2021-11-10] MEDS: AMLODIPINE 10MG TABLET PO SCH (09:44)
[2021-11-10] MEDS: FAMOTIDINE 20MG TABLET PO SCH ×2 (09:45→21:37)
[2021-11-10] MEDS: INSULIN GLARGINE 100 UNITS/ML SUBCUT SCH ×2 (09:46→21:36)
[2021-11-10] MEDS: CEFTRIAXONE 2 G in DEXTROSE 5% WATER 50 ML IV SCH (10:03)
[2021-11-10 12:00] VITALS: BP 142/82
[2021-11-10 16:00] VITALS: BP 130/73
[2021-11-10 20:42] VITALS: BP 148/67
[2021-11-10] MEDS ORDERED: ZOLPIDEM TARTRATE 5MG TABLET PO PRN (21:15)
[2021-11-10] MEDS: HYDROCODONE/ACETAMINOPHEN 5/325MG TABLET PO PRN (21:37)
[2021-11-11 00:33] VITALS: BP 126/66
[2021-11-11 04:00] VITALS: BP 103/60
[2021-11-11] MEDS: BLOOD SUGAR DIAGNOSTIC STRIP TEST SCH ×3 (06:20→16:16)
[2021-11-11] MEDS: INSULIN LISPRO 100 UNITS/ML SUBCUT SCH ×3 (06:20→17:01)
[2021-11-11 08:00] VITALS: BP 115/63
[2021-11-11] MEDS: AMLODIPINE 10MG TABLET PO SCH (09:02)
[2021-11-11] MEDS: FAMOTIDINE 20MG TABLET PO SCH (09:02)
[2021-11-11] MEDS: INSULIN GLARGINE 100 UNITS/ML SUBCUT SCH (09:05)
[2021-11-11] MEDS: CEFTRIAXONE 2 G in DEXTROSE 5% WATER 50 ML IV SCH (11:18)
[2021-11-11 12:00] VITALS: BP 130/61
[2021-11-11] MEDS ORDERED: AMOX-424 MT (14:30)
[2021-11-11 16:00] VITALS: BP 120/56
[2021-11-11 16:41] VITALS: BP 120/56
[2021-11-19] MEDS ORDERED: BENA10TA74 MT (16:29)
[2021-11-19] MEDS ORDERED: ATOR10TA69 MT (16:29)
== END 2021-11-11 18:30 | disposition home health service (06) | DRG 305 ==
LOC: ER 17:04 → MICUSO 23:09 → EDBEDREQ 23:36 → EDBEDREQTM 23:36 → EDBEDREQSVC 23:36 → 7EST 11-04 09:10
PROVIDERS: ADMIT Internal Medicine; ATTEND Internal Medicine
PROC: 0Y6N0Z9 Detachment at Left Foot, Partial 1st Ray, Open Approach (ICD-10-PCS; principal; 2021-11-06)
PROC: 0JBR0ZZ Excision of Left Foot Subcutaneous Tissue and Fascia, Open Approach (ICD-10-PCS; 2021-11-06)
PROC: 0LBW0ZZ Excision of Left Foot Tendon, Open Approach (ICD-10-PCS; 2021-11-11)
DX: E11.52 Type 2 diabetes mellitus with diabetic peripheral angiopathy with gangrene (principal); E44.0 Moderate protein-calorie malnutrition; E11.621 Type 2 diabetes mellitus with foot ulcer; E87.8 Other disorders of electrolyte and fluid balance, not elsewhere classified; L03.116 Cellulitis of left lower limb; D64.9 Anemia, unspecified; L97.529 Non-pressure chronic ulcer of other part of left foot with unspecified severity; E11.69 Type 2 diabetes mellitus with other specified complication; M86.8X7 Other osteomyelitis, ankle and foot; E66.9 Obesity, unspecified; Z20.822 Contact with and (suspected) exposure to COVID-19; F12.90 Cannabis use, unspecified, uncomplicated; I10 Essential (primary) hypertension; K52.9 Noninfective gastroenteritis and colitis, unspecified; F15.90 Other stimulant use, unspecified, uncomplicated; I25.10 Atherosclerotic heart disease of native coronary artery without angina pectoris; Z82.49 Family history of ischemic heart disease and other diseases of the circulatory system; Z79.899 Other long term (current) drug therapy; Z68.29 Body mass index [BMI] 29.0-29.9, adult
CPT/HCPCS: 36415; 73630; 74018; 80048; 80053; 80305; 82962; 83605; 85025; 87070; 87075; 87426; 88304; 88311; 93005; 97161; 99285; J0690; J0696; J1100; J1815; J1885; J2250; J2405; J2543; J2704; J2765; J3010; J3370; J3490; J7030; J7060

== ENCOUNTER 2021-12-05 21:17 | Inpatient (IN) | payer MEDICAID, OTHER ==
[~2021-12-05] VITALS: Ht 154.9 cm; Wt 109.8 kg
[~2021-12-05 21:17] MED LIST changes: +AMOX-424 MT; +ATOR10TA69 MT; +BENA10TA74 MT; -CEFT2FRO5 IV; +GLIP5TAB12 MT; -LANTUSUD SUBCUT; -LEVO500T89 MT; +METF-416 MT; -SULF1TAB48 MT
[2021-12-06 00:10] LABS: BASOPHILS % 0.5 % (0.0-2.0); EOSINOPHILS % 2.1 % (0.0-5.0); HEMATOCRIT. 33.7 % (42.0-52.0); HEMOGLOBIN. 10.8 g/dL (14.0-18.0); LYMPHOCYTES % 21.6 % (20.0-50.0); MEAN CORPUSCULAR HEMOGLOBIN 26.9 pg (28.0-32.0); MEAN CORPUSCULAR VOLUME 83.9 fL (80.0-94.0); MEAN PLATELET VOLUME 8.6 fl (7.4-10.4); MONOCYTES % 8.8 % (2.0-8.0); PLATELET 232 x1000/uL (130-400); RED BLOOD CELL COUNT 4.02 mill/uL (4.7-6.1); RED CELL DISTRIBUTION WIDTH 16.6 % (11.6-14.6)
[2021-12-06 00:15] LABS: CHLORIDE 112 mEq/L (98-107)
[2021-12-06 03:30] LABS: CLARITY URINE CLEAR (CLEAR); COLOR URINE YELLOW (YELLOW); KETONES URINE NEGATIVE (NEGATIVE); LEUKOCYTE ESTERASE URINE NEGATIVE (NEGATIVE); NITRITE URINE NEGATIVE (NEGATIVE); OCCULT BLOOD URINE 1+ (NEGATIVE); PH URINE 5.5 (4.5-8.0); PROTEIN URINE 2+ (NEGATIVE); SPECIFIC GRAVITY URINE 1.019 (1.005-1.030); UROBILINOGEN URINE 0.2 E.U./dL (0.2-1.0)
[2021-12-06] MEDS ORDERED: PIPERACILLIN/TAZ 3.375G PREMIX 50 ML IV NR (05:30)
[2021-12-06] MEDS: VANCOMYCIN 1G PREMIX 200 ML IV SCH ×2 (05:30→07:00)
[2021-12-06] MEDS ORDERED: PIPERACILLIN/TAZOBACTAM 3.375GM/50ML PREMIX IV ONE (05:30)
[2021-12-06 12:00] VITALS: BP 124/73
[2021-12-06 12:40] VITALS: BP 124/73
[2021-12-06 16:12] VITALS: BP 146/69
[2021-12-06] MEDS ORDERED: ACETAMINOPHEN 325MG TABLET PO PRN (18:30)
[2021-12-06] MEDS ORDERED: PIPERACILLIN/TAZ 3.375G PREMIX 50 ML IV SCH (18:30)
[2021-12-06] MEDS ORDERED: GUAIFENESIN 200MG/10ML SUGAR FREE UDC PO PRN (18:30)
[2021-12-06] MEDS ORDERED: MAGNESIUM/ALUMINUM HYDROXIDE/SIMETHICONE 30ML UDC PO PRN (18:30)
[2021-12-06] MEDS ORDERED: HYDRALAZINE 20MG/ML VIAL IV PRN (18:30)
[2021-12-06] MEDS ORDERED: DOCUSATE SODIUM 100MG CAPSULE PO PRN (18:30)
[2021-12-06] MEDS ORDERED: DIPHENHYDRAMINE 50MG/ML VIAL IV PRN (18:30)
[2021-12-06] MEDS ORDERED: ONDANSETRON HCL 4MG/2ML INJ IV PRN (18:30)
[2021-12-06] MEDS ORDERED: IPRATROPIUM/ALBUTEROL 0.5-3(2.5)MG/3ML NEB HHN PRN (18:30)
[2021-12-06] MEDS ORDERED: LORAZEPAM 2MG/ML CPJ IV PRN (18:30)
[2021-12-06] MEDS ORDERED: CLONIDINE 0.1MG TABLET PO PRN (18:30)
[2021-12-06] MEDS ORDERED: HYDRALAZINE 10 MG in SODIUM CHLORIDE 0.9% 49.5 ML IV PRN (18:45)
[2021-12-06] MEDS: ENOXAPARIN 30MG/0.3ML SYR SUBCUT SCH (19:11)
[2021-12-06] MEDS: SODIUM CHLORIDE 0.45% 1,000 ML IV SCH (19:12)
[2021-12-06] MEDS: HYDROCODONE/ACETAMINOPHEN 5/325MG TABLET PO PRN (19:12)
[2021-12-06 20:00] VITALS: BP 109/52
[2021-12-06] MEDS: SODIUM CHLORIDE 0.9% INJ 3ML FLUSH IVF SCH (22:00)
[2021-12-06] MEDS: PIPERACILLIN/TAZOBACTAM 3.375G in DEXT 5% WATER 50ML IV SCH (22:26)
[2021-12-07] VITALS: BP 139/72
[2021-12-07 04:00] VITALS: BP 135/64
[2021-12-07] MEDS: SODIUM CHLORIDE 0.9% INJ 3ML FLUSH IVF SCH ×3 (06:08→22:00)
[2021-12-07] MEDS: PIPERACILLIN/TAZOBACTAM 3.375G in DEXT 5% WATER 50ML IV SCH ×3 (06:12→22:18)
[2021-12-07] MEDS: ENOXAPARIN 30MG/0.3ML SYR SUBCUT SCH ×2 (06:12→18:39)
[2021-12-07 06:26] LABS: BASOPHILS % 0.5 % (0.0-2.0); EOSINOPHILS % 2.7 % (0.0-5.0); HEMATOCRIT. 32.7 % (42.0-52.0); HEMOGLOBIN. 10.8 g/dL (14.0-18.0); LYMPHOCYTES % 20.3 % (20.0-50.0); MEAN CORPUSCULAR HEMOGLOBIN 27.2 pg (28.0-32.0); MEAN CORPUSCULAR VOLUME 82.3 fL (80.0-94.0); MEAN PLATELET VOLUME 8.9 fl (7.4-10.4); MONOCYTES % 9.2 % (2.0-8.0); NEUTROPHILS % 67.3 % (40.0-76.0); PLATELET 238 x1000/uL (130-400); RED BLOOD CELL COUNT 3.98 mill/uL (4.7-6.1); RED CELL DISTRIBUTION WIDTH 15.8 % (11.6-14.6)
[2021-12-07 06:53] LABS: CHLORIDE 107 mEq/L (98-107)
[2021-12-07 08:00] VITALS: BP 133/60
[2021-12-07] MEDS ORDERED: DEXTROSE 50% WATER 50ML SYRINGE IV PRN (11:45)
[2021-12-07 12:00] VITALS: BP 116/69
[2021-12-07] MEDS: BLOOD SUGAR DIAGNOSTIC STRIP TEST SCH ×3 (12:20→21:00)
[2021-12-07] MEDS: SODIUM CHLORIDE 0.45% 1,000 ML IV SCH (12:22)
[2021-12-07] MEDS: INSULIN LISPRO 100 UNITS/ML SUBCUT SCH ×3 (14:04→22:11)
[2021-12-07] MEDS: HYDROCODONE/ACETAMINOPHEN 5/325MG TABLET PO PRN ×2 (15:06→22:08)
[2021-12-07 16:00] VITALS: BP 139/70
[2021-12-07 20:00] VITALS: BP 127/67
[2021-12-07] MEDS ORDERED: VANCOMYCIN 2,000 MG in DEXT 5% WATER 500 ML IV SCH (20:00)
[2021-12-08] VITALS: BP 150/64
[2021-12-08 04:00] VITALS: BP 114/51
[2021-12-08] MEDS: SODIUM CHLORIDE 0.9% INJ 3ML FLUSH IVF SCH ×3 (06:00→22:26)
[2021-12-08] MEDS: PIPERACILLIN/TAZOBACTAM 3.375G in DEXT 5% WATER 50ML IV SCH ×3 (06:16→22:26)
[2021-12-08] MEDS: ENOXAPARIN 30MG/0.3ML SYR SUBCUT SCH ×2 (06:16→18:48)
[2021-12-08] MEDS: SODIUM CHLORIDE 0.45% 1,000 ML IV SCH ×2 (06:18→22:26)
[2021-12-08] MEDS: BLOOD SUGAR DIAGNOSTIC STRIP TEST SCH ×4 (06:31→21:00)
[2021-12-08 08:00] VITALS: BP 115/59
[2021-12-08] MEDS ORDERED: VANCOMYCIN 750 MG in DEXT 5% WATER 250 ML IV SCH (08:00)
[2021-12-08] MEDS: INSULIN LISPRO 100 UNITS/ML SUBCUT SCH ×4 (08:43→22:27)
[2021-12-08] MEDS: HYDROCODONE/ACETAMINOPHEN 5/325MG TABLET PO PRN (12:03)
[2021-12-08 16:00] VITALS: BP 118/62
[2021-12-08 20:00] VITALS: BP 107/59
[2021-12-09] MEDS ORDERED: VANCOMYCIN 1GM PMX (XELLIA) 200 ML IV SCH
[2021-12-09] MEDS: HYDROCODONE/ACETAMINOPHEN 5/325MG TABLET PO PRN ×2 (03:50→18:30)
[2021-12-09 04:00] VITALS: BP 143/74
[2021-12-09] MEDS: PIPERACILLIN/TAZOBACTAM 3.375G in DEXT 5% WATER 50ML IV SCH ×4 (06:22→22:15)
[2021-12-09] MEDS: SODIUM CHLORIDE 0.9% INJ 3ML FLUSH IVF SCH ×3 (06:23→22:11)
[2021-12-09] MEDS: ENOXAPARIN 30MG/0.3ML SYR SUBCUT SCH ×2 (06:23→18:23)
[2021-12-09] MEDS: BLOOD SUGAR DIAGNOSTIC STRIP TEST SCH ×4 (06:23→20:22)
[2021-12-09] MEDS: INSULIN LISPRO 100 UNITS/ML SUBCUT SCH ×4 (07:17→20:48)
[2021-12-09 07:42] LABS: HEMATOCRIT 33.4 % (42.0-52.0); HEMOGLOBIN 10.6 g/dL (14.0-18.0); MEAN CORPUSCULAR HEMOGLOBIN 26.8 pg (28.0-32.0); MEAN CORPUSCULAR VOLUME 84.4 fL (80.0-94.0); PLATELET 237 x1000/uL (130-400); RED BLOOD CELL COUNT 3.96 mill/uL (4.7-6.1); RED CELL DISTRIBUTION WIDTH 15.9 % (11.6-14.6)
[2021-12-09 08:00] VITALS: BP 116/80
[2021-12-09 08:13] LABS: CHLORIDE 108 mEq/L (98-107)
[2021-12-09 12:00] VITALS: BP 138/79
[2021-12-09] MEDS: VANCOMYCIN 750 MG in DEXT 5% WATER 250 ML IV SCH (12:40)
[2021-12-09] MEDS: SODIUM CHLORIDE 0.45% 1,000 ML IV SCH (13:20)
[2021-12-09 16:21] VITALS: BP 104/64
[2021-12-09 20:00] VITALS: BP 131/84
[2021-12-10] VITALS: BP 136/80
[2021-12-10] MEDS: VANCOMYCIN 750 MG in DEXT 5% WATER 250 ML IV SCH ×2 (00:54→12:18)
[2021-12-10 04:00] VITALS: BP 136/75
[2021-12-10] MEDS: SODIUM CHLORIDE 0.45% 1,000 ML IV SCH ×2 (06:07→21:05)
[2021-12-10] MEDS: SODIUM CHLORIDE 0.9% INJ 3ML FLUSH IVF SCH ×3 (06:07→21:06)
[2021-12-10] MEDS: ENOXAPARIN 30MG/0.3ML SYR SUBCUT SCH ×2 (06:08→18:07)
[2021-12-10] MEDS: PIPERACILLIN/TAZOBACTAM 3.375G in DEXT 5% WATER 50ML IV SCH ×3 (06:14→20:57)
[2021-12-10] MEDS: BLOOD SUGAR DIAGNOSTIC STRIP TEST SCH ×4 (06:41→20:46)
[2021-12-10] MEDS: INSULIN LISPRO 100 UNITS/ML SUBCUT SCH ×4 (07:50→20:46)
[2021-12-10 08:00] VITALS: BP 136/73
[2021-12-10 12:00] VITALS: BP 116/78
[2021-12-10 13:15] LABS: HEMATOCRIT 33.6 % (42.0-52.0); HEMOGLOBIN 10.9 g/dL (14.0-18.0); MEAN CORPUSCULAR HEMOGLOBIN 27.1 pg (28.0-32.0); MEAN CORPUSCULAR VOLUME 83.6 fL (80.0-94.0); PLATELET 268 x1000/uL (130-400); RED BLOOD CELL COUNT 4.02 mill/uL (4.7-6.1); RED CELL DISTRIBUTION WIDTH 15.7 % (11.6-14.6)
[2021-12-10 14:30] LABS: CHLORIDE 106 mEq/L (98-107)
[2021-12-10 16:00] VITALS: BP 136/66
[2021-12-10] MEDS ORDERED: NALOXONE HCL 0.4MG/ML VIAL IV PRN (16:30)
[2021-12-10] MEDS: HYDROCODONE/ACETAMINOPHEN 5/325MG TABLET PO PRN (19:03)
[2021-12-10 20:00] VITALS: BP 122/74
[2021-12-11] MEDS ORDERED: VANCOMYCIN 750MG PMX (XELLIA) 150 ML IV SCH
[2021-12-11 04:00] VITALS: BP 125/73
[2021-12-11] MEDS: ENOXAPARIN 30MG/0.3ML SYR SUBCUT SCH ×2 (06:04→18:23)
[2021-12-11] MEDS: HYDROCODONE/ACETAMINOPHEN 5/325MG TABLET PO PRN ×4 (06:25→22:06)
[2021-12-11] MEDS: PIPERACILLIN/TAZOBACTAM 3.375G in DEXT 5% WATER 50ML IV SCH ×2 (06:26→12:15)
[2021-12-11] MEDS: INSULIN LISPRO 100 UNITS/ML SUBCUT SCH ×4 (06:26→22:08)
[2021-12-11] MEDS: BLOOD SUGAR DIAGNOSTIC STRIP TEST SCH ×4 (06:26→21:00)
[2021-12-11] MEDS: SODIUM CHLORIDE 0.9% INJ 3ML FLUSH IVF SCH ×3 (06:26→22:10)
[2021-12-11 06:50] VITALS: BP 142/64
[2021-12-11 08:00] VITALS: BP 98/71
[2021-12-11 09:12] LABS: BASOPHILS % 0.3 % (0.0-2.0); EOSINOPHILS % 2.8 % (0.0-5.0); HEMATOCRIT. 31.3 % (42.0-52.0); HEMOGLOBIN. 10.3 g/dL (14.0-18.0); LYMPHOCYTES % 28.3 % (20.0-50.0); MEAN CORPUSCULAR HEMOGLOBIN 27.1 pg (28.0-32.0); MEAN PLATELET VOLUME 8.8 fl (7.4-10.4); MONOCYTES % 10.1 % (2.0-8.0); NEUTROPHILS % 58.5 % (40.0-76.0); PLATELET 269 x1000/uL (130-400); RED BLOOD CELL COUNT 3.82 mill/uL (4.7-6.1); RED CELL DISTRIBUTION WIDTH 15.4 % (11.6-14.6)
[2021-12-11 09:36] LABS: CHLORIDE 109 mEq/L (98-107)
[2021-12-11 09:47] LABS: VANCOMYCIN TROUGH 21.4 ug/mL (5.0-10.0)
[2021-12-11 12:00] VITALS: BP 145/88
[2021-12-11] MEDS: SODIUM CHLORIDE 0.45% 1,000 ML IV SCH (15:08)
[2021-12-11 16:00] VITALS: BP 140/74
[2021-12-11] MEDS: VANCOMYCIN 1.25GM PMX (XELLIA) 250 ML IV SCH (17:10)
[2021-12-11 20:00] VITALS: BP 131/78
[2021-12-12] MEDS ORDERED: VANCOMYCIN 750MG PREMIX 150 ML IV SCH
[2021-12-12 04:00] VITALS: BP 135/78
[2021-12-12] MEDS: SODIUM CHLORIDE 0.9% INJ 3ML FLUSH IVF SCH ×3 (06:00→22:27)
[2021-12-12 07:29] LABS: BASOPHILS % 0.8 % (0.0-2.0); EOSINOPHILS % 3.2 % (0.0-5.0); HEMATOCRIT. 31.7 % (42.0-52.0); HEMOGLOBIN. 10.3 g/dL (14.0-18.0); LYMPHOCYTES % 30.6 % (20.0-50.0); MEAN CORPUSCULAR HEMOGLOBIN 26.8 pg (28.0-32.0); MEAN CORPUSCULAR VOLUME 82.4 fL (80.0-94.0); MEAN PLATELET VOLUME 8.6 fl (7.4-10.4); MONOCYTES % 9.8 % (2.0-8.0); NEUTROPHILS % 55.6 % (40.0-76.0); PLATELET 256 x1000/uL (130-400); RED BLOOD CELL COUNT 3.85 mill/uL (4.7-6.1); RED CELL DISTRIBUTION WIDTH 15.8 % (11.6-14.6)
[2021-12-12] MEDS: SODIUM CHLORIDE 0.45% 1,000 ML IV SCH (07:50)
[2021-12-12] MEDS: INSULIN LISPRO 100 UNITS/ML SUBCUT SCH ×4 (07:50→21:00)
[2021-12-12 08:00] VITALS: BP 135/50
[2021-12-12] MEDS: BLOOD SUGAR DIAGNOSTIC STRIP TEST SCH ×4 (08:14→21:05)
[2021-12-12] MEDS: ENOXAPARIN 30MG/0.3ML SYR SUBCUT SCH ×2 (08:16→17:35)
[2021-12-12 08:44] LABS: CHLORIDE 109 mEq/L (98-107)
[2021-12-12 12:00] VITALS: BP 127/65
[2021-12-12] MEDS: HYDROCODONE/ACETAMINOPHEN 5/325MG TABLET PO PRN ×3 (12:25→21:05)
[2021-12-12] MEDS: VANCOMYCIN 1.25GM PMX (XELLIA) 250 ML IV SCH (12:27)
[2021-12-12] MEDS ORDERED: CEFTRIAXONE 2 G PREMIX 50 ML IV SCH (14:45)
[2021-12-12 16:00] VITALS: BP 150/88
[2021-12-12] MEDS: CEFTRIAXONE 2 G in DEXTROSE 5% WATER 50 ML IV SCH (17:08)
[2021-12-12] MEDS: METRONIDAZOLE 500MG TABLET PO SCH (20:47)
[2021-12-13] MEDS: SODIUM CHLORIDE 0.45% 1,000 ML IV SCH ×2 (00:30→16:15)
[2021-12-13] MEDS: VANCOMYCIN 1.25GM PMX (XELLIA) 250 ML IV SCH ×2 (06:54→23:14)
[2021-12-13] MEDS: ENOXAPARIN 30MG/0.3ML SYR SUBCUT SCH ×2 (06:55→19:00)
[2021-12-13] MEDS: SODIUM CHLORIDE 0.9% INJ 3ML FLUSH IVF SCH ×3 (06:55→21:28)
[2021-12-13] MEDS: BLOOD SUGAR DIAGNOSTIC STRIP TEST SCH ×4 (07:20→21:29)
[2021-12-13 08:00] VITALS: BP 86/64
[2021-12-13 08:15] VITALS: BP 152/84
[2021-12-13] MEDS: METRONIDAZOLE 500MG TABLET PO SCH ×2 (08:49→21:27)
[2021-12-13] MEDS: INSULIN LISPRO 100 UNITS/ML SUBCUT SCH ×4 (08:55→21:28)
[2021-12-13] MEDS: HYDROCODONE/ACETAMINOPHEN 5/325MG TABLET PO PRN ×2 (08:57→21:27)
[2021-12-13 10:25] LABS: CHLORIDE 108 mEq/L (98-107)
[2021-12-13 10:40] LABS: BASOPHILS % 0.5 % (0.0-2.0); EOSINOPHILS % 2.8 % (0.0-5.0); HEMATOCRIT. 36.4 % (42.0-52.0); HEMOGLOBIN. 11.8 g/dL (14.0-18.0); LYMPHOCYTES % 27.7 % (20.0-50.0); MEAN CORPUSCULAR HEMOGLOBIN 27.3 pg (28.0-32.0); MEAN CORPUSCULAR VOLUME 84.1 fL (80.0-94.0); MEAN PLATELET VOLUME 8.7 fl (7.4-10.4); MONOCYTES % 8.6 % (2.0-8.0); NEUTROPHILS % 60.4 % (40.0-76.0); PLATELET 289 x1000/uL (130-400); RED BLOOD CELL COUNT 4.32 mill/uL (4.7-6.1); RED CELL DISTRIBUTION WIDTH 15.8 % (11.6-14.6)
[2021-12-13 12:00] VITALS: BP 149/70
[2021-12-13] MEDS: CEFTRIAXONE 2 G in DEXTROSE 5% WATER 50 ML IV SCH (14:31)
[2021-12-13 16:00] VITALS: BP 136/81
[2021-12-13 20:00] VITALS: BP 128/89
[2021-12-13 21:30] VITALS: BP 128/89
[2021-12-14 05:15] VITALS: BP 140/84
[2021-12-14] MEDS: HYDROCODONE/ACETAMINOPHEN 5/325MG TABLET PO PRN ×2 (05:26→21:12)
[2021-12-14] MEDS: SODIUM CHLORIDE 0.9% INJ 3ML FLUSH IVF SCH ×3 (06:47→21:12)
[2021-12-14] MEDS: BLOOD SUGAR DIAGNOSTIC STRIP TEST SCH ×4 (06:48→21:13)
[2021-12-14] MEDS: ENOXAPARIN 30MG/0.3ML SYR SUBCUT SCH ×2 (07:26→18:22)
[2021-12-14 08:00] VITALS: BP 150/63
[2021-12-14] MEDS: METRONIDAZOLE 500MG TABLET PO SCH ×2 (08:35→21:12)
[2021-12-14] MEDS: SODIUM CHLORIDE 0.45% 1,000 ML IV SCH (08:37)
[2021-12-14] MEDS: INSULIN LISPRO 100 UNITS/ML SUBCUT SCH ×4 (08:37→21:00)
[2021-12-14 10:48] LABS: CHLORIDE 108 mEq/L (98-107)
[2021-12-14 12:00] VITALS: BP 144/81
[2021-12-14] MEDS: CEFTRIAXONE 2 G in DEXTROSE 5% WATER 50 ML IV SCH (14:38)
[2021-12-14 16:00] VITALS: BP 140/79
[2021-12-14] MEDS: VANCOMYCIN 1GM PMX (XELLIA) 200 ML IV SCH (16:23)
[2021-12-14 20:12] VITALS: BP 112/63
[2021-12-15 00:06] VITALS: BP 119/67
[2021-12-15 04:00] VITALS: BP 126/83
[2021-12-15] MEDS: SODIUM CHLORIDE 0.45% 1,000 ML IV SCH ×2 (05:29→19:10)
[2021-12-15] MEDS: HYDROCODONE/ACETAMINOPHEN 5/325MG TABLET PO PRN ×2 (05:29→15:14)
[2021-12-15] MEDS: SODIUM CHLORIDE 0.9% INJ 3ML FLUSH IVF SCH ×3 (05:30→22:10)
[2021-12-15] MEDS: VANCOMYCIN 1GM PMX (XELLIA) 200 ML IV SCH ×2 (05:39→18:23)
[2021-12-15] MEDS: ENOXAPARIN 30MG/0.3ML SYR SUBCUT SCH ×2 (06:22→18:24)
[2021-12-15] MEDS: BLOOD SUGAR DIAGNOSTIC STRIP TEST SCH ×4 (06:28→21:29)
[2021-12-15] MEDS: INSULIN LISPRO 100 UNITS/ML SUBCUT SCH ×4 (07:50→21:29)
[2021-12-15 08:00] VITALS: BP 104/62
[2021-12-15] MEDS: METRONIDAZOLE 500MG TABLET PO SCH ×2 (09:01→21:29)
[2021-12-15 12:00] VITALS: BP 156/67
[2021-12-15] MEDS: CEFTRIAXONE 2 G in DEXTROSE 5% WATER 50 ML IV SCH (14:03)
[2021-12-15 16:00] VITALS: BP 176/96
[2021-12-15] MEDS ORDERED: NALOXONE HCL 0.4MG/ML VIAL IV PRN (18:30)
[2021-12-16] VITALS: BP 134/76
[2021-12-16] MEDS: HYDROCODONE/ACETAMINOPHEN 5/325MG TABLET PO PRN (02:09)
[2021-12-16 04:00] VITALS: BP 119/56
[2021-12-16 05:44] LABS: CHLORIDE 111 mEq/L (98-107)
[2021-12-16 05:50] LABS: VANCOMYCIN TROUGH 14.9 ug/mL (5.0-10.0)
[2021-12-16] MEDS: ENOXAPARIN 30MG/0.3ML SYR SUBCUT SCH ×2 (06:29→18:26)
[2021-12-16] MEDS: SODIUM CHLORIDE 0.9% INJ 3ML FLUSH IVF SCH ×3 (06:30→21:01)
[2021-12-16] MEDS: VANCOMYCIN 1GM PMX (XELLIA) 200 ML IV SCH ×2 (06:30→18:25)
[2021-12-16] MEDS: BLOOD SUGAR DIAGNOSTIC STRIP TEST SCH ×4 (06:50→20:52)
[2021-12-16] MEDS: INSULIN LISPRO 100 UNITS/ML SUBCUT SCH ×4 (07:50→20:56)
[2021-12-16 08:00] VITALS: BP 123/56
[2021-12-16] MEDS ORDERED: IOHEXOL-350 100 ML BOTTLE ONE (09:42)
[2021-12-16] MEDS: METRONIDAZOLE 500MG TABLET PO SCH ×2 (09:42→20:52)
[2021-12-16 12:00] VITALS: BP 147/83
[2021-12-16] MEDS: SODIUM CHLORIDE 0.45% 1,000 ML IV SCH (13:03)
[2021-12-16] MEDS: CEFTRIAXONE 2 G in DEXTROSE 5% WATER 50 ML IV SCH (14:28)
[2021-12-16 16:00] VITALS: BP 145/82
[2021-12-16 20:00] VITALS: BP 129/63
[2021-12-17] VITALS: BP 119/54
[2021-12-17 04:00] VITALS: BP 138/81
[2021-12-17] MEDS: SODIUM CHLORIDE 0.45% 1,000 ML IV SCH (04:30)
[2021-12-17] MEDS: ENOXAPARIN 30MG/0.3ML SYR SUBCUT SCH (06:39)
[2021-12-17] MEDS: VANCOMYCIN 1GM PMX (XELLIA) 200 ML IV SCH (06:40)
[2021-12-17] MEDS: SODIUM CHLORIDE 0.9% INJ 3ML FLUSH IVF SCH (06:40)
[2021-12-17] MEDS: INSULIN LISPRO 100 UNITS/ML SUBCUT SCH ×2 (07:46→13:07)
[2021-12-17] MEDS: BLOOD SUGAR DIAGNOSTIC STRIP TEST SCH ×2 (07:46→12:16)
[2021-12-17 08:00] VITALS: BP 117/63
[2021-12-17] MEDS: METRONIDAZOLE 500MG TABLET PO SCH (08:23)
[2021-12-17 12:00] VITALS: BP 124/80
[2021-12-17 12:07] VITALS: BP 117/63
== END 2021-12-17 13:06 | disposition home health service (06) | DRG 349 ==
LOC: ER 21:17 → 6EST 12-06 07:24 → EDBEDREQTM 12-06 07:53 → EDBEDREQ 12-06 07:53 → ENRESERV 12-06 11:03 → 6EST 12-13 03:15
PROVIDERS: ADMIT Internal Medicine; ATTEND Internal Medicine
PROC: 02HV33Z Insertion of Infusion Device into Superior Vena Cava, Percutaneous Approach (ICD-10-PCS; principal; 2021-12-10)
PROC: B548ZZA Ultrasonography of Superior Vena Cava, Guidance (ICD-10-PCS; 2021-12-10)
PROC: B5181ZA Fluoroscopy of Superior Vena Cava using Low Osmolar Contrast, Guidance (ICD-10-PCS; 2021-12-10)
DX: T87.44 Infection of amputation stump, left lower extremity (principal); N17.0 Acute kidney failure with tubular necrosis; E46 Unspecified protein-calorie malnutrition; L97.529 Non-pressure chronic ulcer of other part of left foot with unspecified severity; L03.116 Cellulitis of left lower limb; E11.621 Type 2 diabetes mellitus with foot ulcer; D64.9 Anemia, unspecified; M86.8X7 Other osteomyelitis, ankle and foot; E11.69 Type 2 diabetes mellitus with other specified complication; E66.9 Obesity, unspecified; F41.9 Anxiety disorder, unspecified; Z20.822 Contact with and (suspected) exposure to COVID-19; E86.0 Dehydration; I10 Essential (primary) hypertension; Y83.5 Amputation of limb(s) as the cause of abnormal reaction of the patient, or of later complication, without mention of misadventure at the time of the procedure; Y92.89 Other specified places as the place of occurrence of the external cause; Z79.4 Long term (current) use of insulin; Z79.84 Long term (current) use of oral hypoglycemic drugs; Z82.49 Family history of ischemic heart disease and other diseases of the circulatory system; Z68.42 Body mass index [BMI] 45.0-49.9, adult; Z79.2 Long term (current) use of antibiotics; Z79.899 Other long term (current) drug therapy
CPT/HCPCS: 36415; 36573; 71045; 73630; 73721; 75635; 80048; 80053; 80202; 81003; 82962; 85025; 85027; 85651; 86140; 87070; 87426; 93005; 93922; 93971; 99285; C1725; C9803; J0696; J1650; J1815; J2543; J3370; J7060; Q9967

== ENCOUNTER → 2022-09-22 | Day surgery (SDC) | payer MEDICAID ==
[~2022-09-22] VITALS: Ht 193 cm; Wt 127.9 kg
[~2022-09-22] MED LIST changes: +AMLO5TAB88 PO; -AMOX-424 MT; -ATOR10TA69 MT; +ATOR40TA70 PO; -BENA10TA74 MT; +BUPIVACAINE HCL/PF 0.5% (5MG/ML) 30ML ONE; +CEFAZOLIN SODIUM 1000MG/VIAL ONE; +CIPR-263 PO; +DILT180T11 PO; +DULA0.75 SQ; +DULO30CA52 PO; +ERGO1250 PO; +FENTANYL CITRATE/PF 50MCG/ML 2ML VIAL IV PRN; +FENTANYL CITRATE/PF 50MCG/ML 2ML VIAL ONE; +FURO-152 PO; +GABA-532 PO; +GLYCOPYRROLATE 0.2 MG/ML 2ML VIAL ONE; +HYDR118S9 PO; +HYDROCODONE/ACETAMINOPHEN 5/325MG TABLET PO SCH; +HYDROMORPHONE HCL/PF 2MG/ML CPJ IV PRN; +HYDROMORPHONE HCL/PF 2MG/ML CPJ ONE; +KETOROLAC 30MG/ML VIAL ONE; +MEPERIDINE HCL/PF 25MG/ML CPJ IV PRN; +METF-414 PO; -METF-416 MT; -METO-293 MT; +MIDAZOLAM HCL 2 MG/2 ML VIAL ONE; -ONDA4TAB5 MT; +ONDA4TAB50 PO; +ONDANSETRON HCL 4MG/2ML INJ IV PRN; +ONDANSETRON HCL 4MG/2ML INJ ONE; +PIOG15TA68 PO; +PROC-1 PO; +PROPOFOL 200MG/20ML VIAL IV ONE; +RIVA2.5T PO; +ROCURONIUM BROMIDE 10MG/ML VIAL 5ML IV ONE; +SKIN ADHESIVE 0.7 GM EA TOP ONE; +SODIUM CHLORIDE 0.9% 1,000 ML IV SCH; -SUCR1TAB30 PO
[2022-09-22 14:11] VITALS: BP 118/71
== END | disposition home or self-care (01) ==
LOC: EDSTATUS 08-11 11:30 → OR 06:42
PROVIDERS: ATTEND Surgery
DX: K80.10 Calculus of gallbladder with chronic cholecystitis without obstruction (principal); I10 Essential (primary) hypertension; E11.9 Type 2 diabetes mellitus without complications; K21.9 Gastro-esophageal reflux disease without esophagitis; I73.9 Peripheral vascular disease, unspecified; Z79.84 Long term (current) use of oral hypoglycemic drugs; Z79.899 Other long term (current) drug therapy; Z98.890 Other specified postprocedural states; Z20.822 Contact with and (suspected) exposure to COVID-19
CPT/HCPCS: 36415; 47562; 80048; 87426; 88304; C9803; J0690; J1170; J1885; J2250; J2405; J2704; J3010; J3490; J7030

== ENCOUNTER 2022-09-26 12:02 | Inpatient (IN) | payer MEDICAID ==
[~2022-09-26] VITALS: Ht 193 cm; Wt 123.8 kg
[~2022-09-26 12:02] MED LIST changes: -BUPIVACAINE HCL/PF 0.5% (5MG/ML) 30ML ONE; -CEFAZOLIN SODIUM 1000MG/VIAL ONE; -FENTANYL CITRATE/PF 50MCG/ML 2ML VIAL IV PRN; -FENTANYL CITRATE/PF 50MCG/ML 2ML VIAL ONE; -GLIP5TAB12 MT; -GLYCOPYRROLATE 0.2 MG/ML 2ML VIAL ONE; -HYDROCODONE/ACETAMINOPHEN 5/325MG TABLET PO SCH; -HYDROMORPHONE HCL/PF 2MG/ML CPJ IV PRN; -HYDROMORPHONE HCL/PF 2MG/ML CPJ ONE; -KETOROLAC 30MG/ML VIAL ONE; -MEPERIDINE HCL/PF 25MG/ML CPJ IV PRN; -MIDAZOLAM HCL 2 MG/2 ML VIAL ONE; -OMEP20CA14 MT; -ONDANSETRON HCL 4MG/2ML INJ IV PRN; -ONDANSETRON HCL 4MG/2ML INJ ONE; -PROPOFOL 200MG/20ML VIAL IV ONE; -ROCURONIUM BROMIDE 10MG/ML VIAL 5ML IV ONE; -SKIN ADHESIVE 0.7 GM EA TOP ONE; -SODIUM CHLORIDE 0.9% 1,000 ML IV SCH; -TRAM50TA3 MT
[2022-09-26] MEDS ORDERED: MORPHINE SULFATE 2 MG/ML CPJ (NOT FOR IM USE) IV ONE (13:45)
[2022-09-26] MEDS ORDERED: SODIUM CHLORIDE 0.9% 1,000 ML IV ONE (13:45)
[2022-09-26] MEDS ORDERED: ONDANSETRON HCL 4MG/2ML INJ IV ONE (13:45)
[2022-09-26 15:31] LABS: BASOPHILS % 0.1 % (0.0-2.0); EOSINOPHILS % 0.1 % (0.0-5.0); HEMATOCRIT. 35.5 % (42.0-52.0); HEMOGLOBIN. 11.5 g/dL (14.0-18.0); MEAN CORPUSCULAR HEMOGLOBIN 27.6 pg (28.0-32.0); MEAN CORPUSCULAR VOLUME 85.1 fL (80.0-94.0); MEAN PLATELET VOLUME 8.8 fl (7.4-10.4); MONOCYTES % 5.6 % (2.0-8.0); NEUTROPHILS % 86.2 % (40.0-76.0); PLATELET 233 x1000/uL (130-400); RED BLOOD CELL COUNT 4.17 mill/uL (4.7-6.1); RED CELL DISTRIBUTION WIDTH 18.8 % (11.6-14.6)
[2022-09-26 15:35] LABS: PROTHROMBIN TIME 10.9 sec (9.6-11.0)
[2022-09-26 15:41] LABS: CHLORIDE 105 mEq/L (98-107)
[2022-09-26] MEDS ORDERED: MORPHINE SULFATE 2 MG/ML CPJ (NOT FOR IM USE) IV NR (15:45)
[2022-09-26] MEDS ORDERED: ONDANSETRON HCL 4MG/2ML INJ IV NR (15:45)
[2022-09-26] MEDS ORDERED: METHYLPREDNISOLONE SOD SUCC 125 MG/2 ML VIAL IV SCH (16:30)
[2022-09-26] MEDS ORDERED: FUROSEMIDE 40MG/4ML VIAL IVP ONE (16:30)
[2022-09-26 17:28] LABS: CLARITY URINE CLEAR (CLEAR); COLOR URINE YELLOW (YELLOW); KETONES URINE 2+ (NEGATIVE); LEUKOCYTE ESTERASE URINE NEGATIVE (NEGATIVE); NITRITE URINE NEGATIVE (NEGATIVE); OCCULT BLOOD URINE 2+ (NEGATIVE); PH URINE 5.5 (4.5-8.0); PROTEIN URINE 3+ (NEGATIVE); SPECIFIC GRAVITY URINE 1.022 (1.005-1.030)
[2022-09-27 01:45] VITALS: BP 136/75
[2022-09-27] MEDS: HEPARIN 5000 UNITS/ML VIAL SUBCUT SCH ×2 (06:41→13:40)
[2022-09-27] MEDS ORDERED: ONDANSETRON HCL 4MG TABLET PO PRN (07:30)
[2022-09-27] MEDS ORDERED: PROCHLORPERAZINE MALEATE 10MG TABLET PO PRN (07:30)
[2022-09-27] MEDS ORDERED: HYDROCODONE/ACETAMINOPHEN 7.5/325MG TABLET PO PRN (07:45)
[2022-09-27 08:00] VITALS: BP 136/81
[2022-09-27] MEDS ORDERED: IPRATROPIUM/ALBUTEROL 0.5-3(2.5)MG/3ML NEB HHN PRN (08:00)
[2022-09-27] MEDS ORDERED: ACETAMINOPHEN 325MG TABLET PO PRN ×2 (08:00)
[2022-09-27] MEDS ORDERED: CLONIDINE 0.1MG TABLET PO PRN (08:00)
[2022-09-27] MEDS ORDERED: METFORMIN HCL 500MG TABLET PO SCH (08:10)
[2022-09-27] MEDS ORDERED: INSULIN LISPRO 100 UNITS/ML SUBCUT SCH (08:10)
[2022-09-27] MEDS ORDERED: IPRATROPIUM BROMIDE (0.02%) 0.5MG/2.5ML NEB HHN PRN (08:15)
[2022-09-27] MEDS ORDERED: ALBUTEROL (0.083%) 2.5MG/3ML NEB HHN PRN (08:15)
[2022-09-27] MEDS ORDERED: DEXTROSE 50% WATER 50ML SYRINGE IV PRN ×2 (08:15)
[2022-09-27] MEDS: INSULIN LISPRO 100 UNITS/ML SUBCUT SCH ×4 (08:18→21:00)
[2022-09-27] MEDS ORDERED: IOHEXOL-350 100 ML BOTTLE ONE (08:47)
[2022-09-27] MEDS ORDERED: PANTOPRAZOLE 40MG DR TABLET PO SCH (09:00)
[2022-09-27] MEDS ORDERED: PIOGLITAZONE 15MG TABLET PO SCH (09:00)
[2022-09-27] MEDS ORDERED: FUROSEMIDE 20MG TABLET PO SCH (09:00)
[2022-09-27] MEDS ORDERED: MORPHINE SULFATE 2 MG/ML CPJ (NOT FOR IM USE) IV PRN (09:15)
[2022-09-27] MEDS: DILTIAZEM HCL 180MG CAPSULE CD 24HR PO SCH (09:59)
[2022-09-27] MEDS: AMLODIPINE 5MG TABLET PO SCH (09:59)
[2022-09-27] MEDS: DOCUSATE SODIUM 100MG CAPSULE PO PRN ×2 (10:00→18:39)
[2022-09-27] MEDS: METOCLOPRAMIDE HCL 10MG/2ML VIAL IV SCH ×3 (10:00→17:50)
[2022-09-27 10:11] LABS: HEMATOCRIT. 34.3 % (42.0-52.0); HEMOGLOBIN. 11.2 g/dL (14.0-18.0); LYMPHOCYTES % 7.8 % (20.0-50.0); MEAN CORPUSCULAR HEMOGLOBIN 27.1 pg (28.0-32.0); MEAN CORPUSCULAR VOLUME 83.4 fL (80.0-94.0); MEAN PLATELET VOLUME 9.3 fl (7.4-10.4); NEUTROPHILS % 83.2 % (40.0-76.0); PLATELET 242 x1000/uL (130-400); RED BLOOD CELL COUNT 4.11 mill/uL (4.7-6.1); RED CELL DISTRIBUTION WIDTH 18.4 % (11.6-14.6)
[2022-09-27] MEDS: PANTOPRAZOLE SODIUM 40 MG/VIAL IV SCH (11:37)
[2022-09-27] MEDS: FLUTICASONE PROPIONATE 50MCG/SPRAY BOTTLE BOTHNSTRLS SCH ×2 (11:37→21:05)
[2022-09-27] MEDS: RIVAROXABAN 2.5 MG TABLET PO SCH ×2 (11:38→17:50)
[2022-09-27 12:00] VITALS: BP 125/72
[2022-09-27] MEDS: BLOOD SUGAR DIAGNOSTIC STRIP TEST SCH ×3 (12:16→21:05)
[2022-09-27] MEDS ORDERED: BLOOD SUGAR DIAGNOSTIC STRIP TEST SCH (12:40)
[2022-09-27] MEDS: HYDROCODONE/ACETAMINOPHEN 5/325MG TABLET PO PRN ×2 (13:39→18:39)
[2022-09-27] MEDS ORDERED: NALOXONE HCL 0.4MG/ML VIAL IV PRN (14:00)
[2022-09-27] MEDS ORDERED: DILTIAZEM HCL 60MG TABLET PO SCH (14:00)
[2022-09-27 16:00] VITALS: BP 129/70
[2022-09-27 20:00] VITALS: BP 100/64
[2022-09-27] MEDS: GABAPENTIN 300MG CAPSULE PO SCH (21:05)
[2022-09-27] MEDS: ATORVASTATIN CALCIUM 40MG TABLET PO SCH (21:05)
[2022-09-27] MEDS: DULOXETINE HCL 30MG DR CAPSULE PO SCH (21:05)
[2022-09-28] VITALS: BP 116/57
[2022-09-28 04:00] VITALS: BP 107/59
[2022-09-28] MEDS: METOCLOPRAMIDE HCL 10MG/2ML VIAL IV SCH ×4 (06:22→17:35)
[2022-09-28] MEDS: BLOOD SUGAR DIAGNOSTIC STRIP TEST SCH ×4 (06:39→20:21)
[2022-09-28 06:56] LABS: BASOPHILS % 0.2 % (0.0-2.0); EOSINOPHILS % 1.2 % (0.0-5.0); HEMATOCRIT. 32.9 % (42.0-52.0); HEMOGLOBIN. 10.6 g/dL (14.0-18.0); LYMPHOCYTES % 16.5 % (20.0-50.0); MEAN CORPUSCULAR HEMOGLOBIN 27.1 pg (28.0-32.0); MEAN CORPUSCULAR VOLUME 83.7 fL (80.0-94.0); MEAN PLATELET VOLUME 9.4 fl (7.4-10.4); MONOCYTES % 11.4 % (2.0-8.0); NEUTROPHILS % 70.7 % (40.0-76.0); PLATELET 239 x1000/uL (130-400); RED BLOOD CELL COUNT 3.93 mill/uL (4.7-6.1)
[2022-09-28 08:00] VITALS: BP 120/74
[2022-09-28] MEDS ORDERED: METO-293 MT (08:54)
[2022-09-28] MEDS ORDERED: FLUT9.9S BOTHNSTRLS (08:54)
[2022-09-28] MEDS: FLUTICASONE PROPIONATE 50MCG/SPRAY BOTTLE BOTHNSTRLS SCH ×2 (09:48→20:45)
[2022-09-28] MEDS: PANTOPRAZOLE SODIUM 40 MG/VIAL IV SCH (09:48)
[2022-09-28] MEDS: DOCUSATE SODIUM 100MG CAPSULE PO PRN ×2 (09:48→17:35)
[2022-09-28] MEDS: HYDROCODONE/ACETAMINOPHEN 5/325MG TABLET PO PRN ×3 (09:48→17:35)
[2022-09-28] MEDS: DILTIAZEM HCL 180MG CAPSULE CD 24HR PO SCH (09:49)
[2022-09-28] MEDS: RIVAROXABAN 2.5 MG TABLET PO SCH ×2 (09:49→17:35)
[2022-09-28] MEDS: AMLODIPINE 5MG TABLET PO SCH (09:49)
[2022-09-28] MEDS: INSULIN LISPRO 100 UNITS/ML SUBCUT SCH ×4 (09:50→20:21)
[2022-09-28 12:00] VITALS: BP 105/72
[2022-09-28 16:00] VITALS: BP 111/54
[2022-09-28 20:00] VITALS: BP 101/56
[2022-09-28] MEDS: SODIUM CHLORIDE 0.9% 1,000 ML IV SCH (20:45)
[2022-09-28] MEDS: GABAPENTIN 300MG CAPSULE PO SCH (20:46)
[2022-09-28] MEDS: ATORVASTATIN CALCIUM 40MG TABLET PO SCH (20:46)
[2022-09-28] MEDS: DULOXETINE HCL 30MG DR CAPSULE PO SCH (20:46)
[2022-09-29] VITALS: BP 105/51
[2022-09-29] MEDS: METOCLOPRAMIDE HCL 10MG/2ML VIAL IV SCH ×4 (00:27→18:00)
[2022-09-29 04:00] VITALS: BP 98/50
[2022-09-29] MEDS: SODIUM CHLORIDE 0.9% 1,000 ML IV SCH ×3 (04:45→19:55)
[2022-09-29] MEDS: BLOOD SUGAR DIAGNOSTIC STRIP TEST SCH ×4 (06:08→20:41)
[2022-09-29 07:47] LABS: BASOPHILS % 0.3 % (0.0-2.0); EOSINOPHILS % 1.5 % (0.0-5.0); HEMATOCRIT. 31.8 % (42.0-52.0); HEMOGLOBIN. 10.5 g/dL (14.0-18.0); LYMPHOCYTES % 20.1 % (20.0-50.0); MEAN CORPUSCULAR HEMOGLOBIN 27.5 pg (28.0-32.0); MEAN CORPUSCULAR VOLUME 83.4 fL (80.0-94.0); MONOCYTES % 10.9 % (2.0-8.0); NEUTROPHILS % 67.2 % (40.0-76.0); PLATELET 242 x1000/uL (130-400); RED BLOOD CELL COUNT 3.82 mill/uL (4.7-6.1); RED CELL DISTRIBUTION WIDTH 17.7 % (11.6-14.6)
[2022-09-29] MEDS: INSULIN LISPRO 100 UNITS/ML SUBCUT SCH ×3 (07:47→20:48)
[2022-09-29 08:00] VITALS: BP 104/52
[2022-09-29] MEDS: AMLODIPINE 5MG TABLET PO SCH (09:00)
[2022-09-29] MEDS: DILTIAZEM HCL 180MG CAPSULE CD 24HR PO SCH (09:00)
[2022-09-29] MEDS: PANTOPRAZOLE SODIUM 40 MG/VIAL IV SCH (09:41)
[2022-09-29] MEDS: DOCUSATE SODIUM 100MG CAPSULE PO PRN (09:42)
[2022-09-29] MEDS: RIVAROXABAN 2.5 MG TABLET PO SCH ×2 (09:44→17:00)
[2022-09-29] MEDS: FLUTICASONE PROPIONATE 50MCG/SPRAY BOTTLE BOTHNSTRLS SCH ×2 (09:44→20:41)
[2022-09-29 11:28] LABS: CREATINE KINASE 579 IU/L (39-308)
[2022-09-29 12:00] VITALS: BP 125/74
[2022-09-29 16:00] VITALS: BP 120/68
[2022-09-29 20:00] VITALS: BP 114/51
[2022-09-29] MEDS: DULOXETINE HCL 30MG DR CAPSULE PO SCH (20:41)
[2022-09-29] MEDS: ATORVASTATIN CALCIUM 40MG TABLET PO SCH (20:41)
[2022-09-29] MEDS: GABAPENTIN 300MG CAPSULE PO SCH (20:41)
[2022-09-30 00:01] VITALS: BP 153/85
[2022-09-30] MEDS: METOCLOPRAMIDE HCL 10MG/2ML VIAL IV SCH ×4 (00:15→17:09)
[2022-09-30 04:00] VITALS: BP 128/60
[2022-09-30] MEDS: INSULIN LISPRO 100 UNITS/ML SUBCUT SCH ×3 (05:38→17:11)
[2022-09-30] MEDS: BLOOD SUGAR DIAGNOSTIC STRIP TEST SCH ×3 (05:38→17:05)
[2022-09-30 06:48] LABS: BASOPHILS % 0.3 % (0.0-2.0); EOSINOPHILS % 1.7 % (0.0-5.0); HEMATOCRIT. 30.7 % (42.0-52.0); HEMOGLOBIN. 9.8 g/dL (14.0-18.0); LYMPHOCYTES % 19.1 % (20.0-50.0); MEAN CORPUSCULAR HEMOGLOBIN 26.8 pg (28.0-32.0); MEAN CORPUSCULAR VOLUME 84.3 fL (80.0-94.0); MEAN PLATELET VOLUME 8.9 fl (7.4-10.4); MONOCYTES % 9.5 % (2.0-8.0); NEUTROPHILS % 69.4 % (40.0-76.0); PLATELET 258 x1000/uL (130-400); RED BLOOD CELL COUNT 3.64 mill/uL (4.7-6.1); RED CELL DISTRIBUTION WIDTH 17.9 % (11.6-14.6)
[2022-09-30 08:00] VITALS: BP 130/89
[2022-09-30] MEDS: DOCUSATE SODIUM 100MG CAPSULE PO PRN (10:11)
[2022-09-30] MEDS: AMLODIPINE 5MG TABLET PO SCH (10:11)
[2022-09-30] MEDS: PANTOPRAZOLE SODIUM 40 MG/VIAL IV SCH (10:11)
[2022-09-30] MEDS: RIVAROXABAN 2.5 MG TABLET PO SCH ×2 (10:11→17:09)
[2022-09-30] MEDS: DILTIAZEM HCL 180MG CAPSULE CD 24HR PO SCH (10:11)
[2022-09-30 12:00] VITALS: BP 130/75
[2022-09-30] MEDS ORDERED: COR3 PO (15:34)
[2022-09-30] MEDS ORDERED: INSU100I28 SQ (15:35)
[2022-09-30 16:00] VITALS: BP 121/61
[2022-09-30] MEDS: SODIUM CHLORIDE 0.9% 1,000 ML IV SCH (17:03)
[2022-09-30 17:18] LABS: *AMPHETAMINES SCREEN URINE NEGATIVE (NEGATIVE); *BARBITURATES SCREEN URINE NEGATIVE (NEGATIVE); *BENZODIAZEPINES SCREEN URINE NEGATIVE (NEGATIVE); *COCAINE SCREEN URINE NEGATIVE (NEGATIVE); CANNABINOID URINE SCREEN PRESUMTIVE POSITIVE (NEGATIVE); METHADONE URINE SCREEN NEGATIVE (NEGATIVE); OPIATES URINE SCREEN NEGATIVE (NEGATIVE); PHENCYCLIDINE URINE SCREEN NEGATIVE (NEGATIVE)
[2022-09-30 17:48] VITALS: BP 121/61
[2022-09-30] MEDS ORDERED: CARVEDILOL 3.125 MG TABLET PO SCH (21:00)
[2022-10-02] MEDS ORDERED: ERGOCALCIFEROL 50000UNITS CAPSULE PO SCH (09:00)
== END 2022-09-30 19:15 | disposition home or self-care (01) | DRG 48 ==
LOC: ER 12:21 → 7WST 17:11
PROVIDERS: ADMIT Internal Medicine; ATTEND Internal Medicine
DX: E11.43 Type 2 diabetes mellitus with diabetic autonomic (poly)neuropathy (principal); N17.0 Acute kidney failure with tubular necrosis; I50.41 Acute combined systolic (congestive) and diastolic (congestive) heart failure; E87.20 Acidosis, unspecified; E88.09 Other disorders of plasma-protein metabolism, not elsewhere classified; D63.1 Anemia in chronic kidney disease; I42.9 Cardiomyopathy, unspecified; I13.0 Hypertensive heart and chronic kidney disease with heart failure and stage 1 through stage 4 chronic kidney disease, or unspecified chronic kidney disease; E11.22 Type 2 diabetes mellitus with diabetic chronic kidney disease; Z20.822 Contact with and (suspected) exposure to COVID-19; E78.00 Pure hypercholesterolemia, unspecified; K31.84 Gastroparesis; K57.90 Diverticulosis of intestine, part unspecified, without perforation or abscess without bleeding; N18.9 Chronic kidney disease, unspecified; M48.061 Spinal stenosis, lumbar region without neurogenic claudication; E04.2 Nontoxic multinodular goiter; K76.0 Fatty (change of) liver, not elsewhere classified; Z79.4 Long term (current) use of insulin; Z82.49 Family history of ischemic heart disease and other diseases of the circulatory system; Z79.01 Long term (current) use of anticoagulants; Z89.412 Acquired absence of left great toe; Z90.49 Acquired absence of other specified parts of digestive tract; Z79.899 Other long term (current) drug therapy
CPT/HCPCS: 36415; 71045; 71275; 74174; 74176; 76770; 80048; 80053; 80305; 81003; 82550; 82962; 83036; 83605; 83880; 84484; 85025; 87426; 93005; 93306; 99285; C9113; J1644; J1815; J1940; J2270; J2405; J2765; J2930; J7030; Q0162; Q9967

== ENCOUNTER 2023-04-14 11:53 | Emergency (ER) | payer MEDICAID ==
[~2023-04-14] VITALS: Ht 193 cm; Wt 123.0 kg
[~2023-04-14 11:53] MED LIST changes: -CIPR-263 PO; +COR3 PO; +FLUT9.9S BOTHNSTRLS; +INSU100I28 SQ; +METO-293 MT; -PROC-1 PO
[2023-04-14 12:19] VITALS: O2SAT 99
[2023-04-14] MEDS ORDERED: ONDANSETRON HCL 4MG/2ML INJ IV STA (13:07)
[2023-04-14] MEDS ORDERED: KETOROLAC 30MG/ML VIAL IV STA (13:07)
[2023-04-14 13:13] LABS: BASOPHILS % 0.4 % (0.0-2.0); EOSINOPHILS % 1.4 % (0.0-5.0); HEMOGLOBIN. 11.9 g/dL (14.0-18.0); LYMPHOCYTES % 18.1 % (20.0-50.0); MEAN CORPUSCULAR HEMOGLOBIN 26.2 pg (28.0-32.0); MEAN CORPUSCULAR HGB CONC 32.1 g/dL (31.0-37.0); MEAN CORPUSCULAR VOLUME 81.7 fL (80.0-94.0); MEAN PLATELET VOLUME 8.5 fl (7.4-10.4); MONOCYTES % 9.8 % (2.0-8.0); NEUTROPHILS % 70.3 % (40.0-76.0); PLATELET 240 x1000/uL (130-400); RED BLOOD CELL COUNT 4.53 mill/uL (4.7-6.1); RED CELL DISTRIBUTION WIDTH 20.6 % (11.6-14.6); WHITE BLOOD COUNT 9.3 x1000/uL (4.5-11.0)
[2023-04-14 13:14] LABS: CHLORIDE 104 mEq/L (98-107); INDEX HEMOLYSI 1 (1-3); INDEX ICTERIC 1 (1-4); INDEX LIPEMIC 1 (1-3); POTASSIUM 4.2 mEq/L (3.5-5.1); SODIUM 138 mEq/L (136-145)
[2023-04-14] MEDS ORDERED: SODIUM CHLORIDE 0.9% 1,000 ML IV ONE (13:15)
[2023-04-14 13:21] LABS: ALANINE AMINOTRANSFERASE 49 IU/L (13-61); ALBUMIN 3.1 g/dL (3.4-5.0); ASPARTATE AMINOTRANSFERASE 31 IU/L (15-37); CALCIUM 8.7 mg/dL (8.5-10.1); CARBON DIOXIDE 26 mEq/L (21-32); CREATININE 1.4 mg/dL (0.6-1.3); GLUCOSE 229 mg/dL (70-105); UREA NITROGEN BLOOD 22 mg/dL (7-21)
[2023-04-14 13:23] LABS: BILIRUBIN TOTAL 0.4 mg/dL (0.1-1.0); PROTEIN TOTAL 8.1 g/dL (6.0-8.3)
[2023-04-14 14:06] LABS: PROTHROMBIN TIME 10.4 sec (9.6-11.0)
[2023-04-14 15:34] VITALS: BP 127/78; PULSE 95; RESP 18; TEMP 98.1
== END 2023-04-14 18:00 | disposition home or self-care (01) ==
LOC: ER 11:53
DX: S39.011A Strain of muscle, fascia and tendon of abdomen, initial encounter (principal); E11.9 Type 2 diabetes mellitus without complications; Z90.49 Acquired absence of other specified parts of digestive tract; Z79.899 Other long term (current) drug therapy; X58.XXXA Exposure to other specified factors, initial encounter; Y93.89 Activity, other specified; Y92.89 Other specified places as the place of occurrence of the external cause; Y99.8 Other external cause status
CPT/HCPCS: 99284; 74176; 80053; 83690; 85025; 85610; 36415; J7030

== ENCOUNTER 2023-07-21 09:10 | Emergency (ER) | payer MEDICAID ==
[~2023-07-21] VITALS: Ht 193 cm; Wt 120.0 kg
[2023-07-21 09:20] VITALS: BP 96/39; RESP 16; TEMP 99; O2SAT 99
[2023-07-21 09:23] VITALS: PULSE 89
[2023-07-21] MEDS ORDERED: TOPUD PO (13:47)
== END 2023-07-21 13:10 | disposition home or self-care (01) ==
LOC: ER 09:10
DX: M25.512 Pain in left shoulder (principal); R21 Rash and other nonspecific skin eruption; E11.9 Type 2 diabetes mellitus without complications; I50.9 Heart failure, unspecified; Z98.890 Other specified postprocedural states; Z79.899 Other long term (current) drug therapy
CPT/HCPCS: 99282

== ENCOUNTER 2023-09-02 09:14 | Inpatient (IN) | payer MEDICAID ==
[~2023-09-02] VITALS: Ht 193 cm; Wt 125.2 kg
[~2023-09-02 09:14] MED LIST changes: +TOPUD PO
[2023-09-02 09:44] LABS: BASOPHILS % 0.5 % (0.0-2.0); EOSINOPHILS % 1.7 % (0.0-5.0); HEMATOCRIT. 34.2 % (42.0-52.0); HEMOGLOBIN. 11.1 g/dL (14.0-18.0); LYMPHOCYTES % 23.8 % (20.0-50.0); MEAN CORPUSCULAR HEMOGLOBIN 28.4 pg (28.0-32.0); MEAN CORPUSCULAR HGB CONC 32.3 g/dL (31.0-37.0); MEAN CORPUSCULAR VOLUME 88.1 fL (80.0-94.0); MEAN PLATELET VOLUME 8.4 fl (7.4-10.4); MONOCYTES % 11.4 % (2.0-8.0); NEUTROPHILS % 62.6 % (40.0-76.0); PLATELET 266 x1000/uL (130-400); RED BLOOD CELL COUNT 3.88 mill/uL (4.7-6.1); RED CELL DISTRIBUTION WIDTH 20.8 % (11.6-14.6); WHITE BLOOD COUNT 7.8 x1000/uL (4.5-11.0)
[2023-09-02 09:58] LABS: LACTATE DEHYDROGENASE 221 IU/L (120-246)
[2023-09-02 10:01] LABS: INR 1.1; PROTHROMBIN TIME 11.5 sec (9.6-11.0)
[2023-09-02 10:05] LABS: ALANINE AMINOTRANSFERASE 14 IU/L (10-49); ASPARTATE AMINOTRANSFERASE 32 IU/L (<34); BILIRUBIN TOTAL 0.3 mg/dL (0.1-1.0); CALCIUM 9.1 mg/dL (8.7-10.4); CARBON DIOXIDE 26 mEq/L (21-32); CHLORIDE 100 mEq/L (98-107); CREATININE 1.9 mg/dL (0.6-1.3); GLUCOSE 222 mg/dL (70-105); POTASSIUM 4.5 mEq/L (3.5-5.1); PROTEIN TOTAL 7.7 g/dL (6.0-8.3); SODIUM 135 mEq/L (136-145); UREA NITROGEN BLOOD 28 mg/dL (9-23)
[2023-09-02] MEDS: SODIUM CHLORIDE 0.9% 1,000 ML IV ONE (10:58)
[2023-09-02 11:07] LABS: CLARITY URINE CLEAR (CLEAR); COLOR URINE YELLOW (YELLOW); GLUCOSE URINE 3+ (NEGATIVE); KETONES URINE NEGATIVE (NEGATIVE); LEUKOCYTE ESTERASE URINE NEGATIVE (NEGATIVE); NITRITE URINE NEGATIVE (NEGATIVE); OCCULT BLOOD URINE NEGATIVE (NEGATIVE); PH URINE 5.5 (4.5-8.0); PROTEIN URINE NEGATIVE (NEGATIVE); SPECIFIC GRAVITY URINE 1.016 (1.005-1.030); UROBILINOGEN URINE 0.2 E.U./dL (0.2-1.0)
[2023-09-02 11:28] LABS: SQUAMOUS EPITHELIAL CELL URINE FEW /lpf (RARE/1+)
[2023-09-02 11:29] LABS: RBC URINE 0-2 /hpf (0-2); WBC URINE 0-2 /hpf (0-2)
[2023-09-02 11:30] LABS: BACTERIA URINE NONE SEEN
[2023-09-02] MEDS: PIPERACILLIN/TAZO 3.375G/50ML 50 ML IV SCH (14:31)
[2023-09-02 15:45] VITALS: BP 166/75; PULSE 81; RESP 20; TEMP 97.9
[2023-09-02] MEDS ORDERED: ACETAMINOPHEN 325MG TABLET PO PRN (19:00)
[2023-09-02 20:00] VITALS: BP 120/66; PULSE 80; RESP 19; TEMP 97.4
[2023-09-02] MEDS: BLOOD SUGAR DIAGNOSTIC STRIP TEST SCH (21:03)
[2023-09-02] MEDS: ATORVASTATIN CALCIUM 40MG TABLET PO SCH (21:19)
[2023-09-02] MEDS: DULOXETINE HCL 30MG DR CAPSULE PO SCH (21:19)
[2023-09-02] MEDS: GABAPENTIN 300MG CAPSULE PO SCH (21:20)
[2023-09-02] MEDS: CARVEDILOL 3.125 MG TABLET PO SCH (21:20)
[2023-09-02] MEDS: INSULIN LISPRO 100 UNITS/ML SUBCUT SCH (21:25)
[2023-09-02] MEDS: INSULIN GLARGINE 100 UNITS/ML SUBCUT SCH (21:27)
[2023-09-03 04:00] VITALS: BP 115/67; PULSE 84; RESP 20; TEMP 97.3
[2023-09-03] MEDS: PANTOPRAZOLE 40MG DR TABLET PO SCH (06:37)
[2023-09-03 07:22] LABS: CALCIUM 8.7 mg/dL (8.7-10.4); CREATININE 1.5 mg/dL (0.6-1.3); POTASSIUM 4.3 mEq/L (3.5-5.1)
[2023-09-03 07:27] LABS: BASOPHILS % 0.4 % (0.0-2.0); EOSINOPHILS % 2.1 % (0.0-5.0); HEMATOCRIT. 34.5 % (42.0-52.0); HEMOGLOBIN. 11.2 g/dL (14.0-18.0); LYMPHOCYTES % 24.9 % (20.0-50.0); MEAN CORPUSCULAR HEMOGLOBIN 28.1 pg (28.0-32.0); MEAN CORPUSCULAR HGB CONC 32.6 g/dL (31.0-37.0); MEAN CORPUSCULAR VOLUME 86.3 fL (80.0-94.0); MEAN PLATELET VOLUME 8.9 fl (7.4-10.4); MONOCYTES % 12.5 % (2.0-8.0); NEUTROPHILS % 60.1 % (40.0-76.0); PLATELET 229 x1000/uL (130-400); RED CELL DISTRIBUTION WIDTH 20.9 % (11.6-14.6); WHITE BLOOD COUNT 6.5 x1000/uL (4.5-11.0)
[2023-09-03 08:00] VITALS: BP 119/72; PULSE 79; RESP 19; TEMP 97.6
[2023-09-03 12:00] VITALS: BP 112/69; PULSE 78; RESP 20; TEMP 97.7
[2023-09-03] MEDS: INSULIN GLARGINE 100 UNITS/ML SUBCUT SCH ×2 (13:15→21:23)
[2023-09-03 16:00] VITALS: BP 120/70; PULSE 77; RESP 20; TEMP 97.5
[2023-09-03] MEDS: CEFTRIAXONE 1GM PREMIX 50 ML IV SCH (17:49)
[2023-09-03 20:00] VITALS: BP 120/66; PULSE 84; RESP 20; TEMP 96.6
[2023-09-04 04:00] VITALS: BP 90/54; PULSE 86; RESP 20; TEMP 97.9
[2023-09-04 08:00] VITALS: BP 98/46; PULSE 86; RESP 18; TEMP 99.9
[2023-09-04 12:00] VITALS: BP 115/67; PULSE 82; RESP 18; TEMP 98.9
[2023-09-04 16:00] VITALS: BP 117/72; PULSE 79; RESP 18; TEMP 97.6
[2023-09-05] MEDS: FAMOTIDINE 20MG TABLET PO SCH (07:20)
[2023-09-05 07:51] VITALS: BP 104/65; PULSE 83; RESP 18; TEMP 99.8
[2023-09-05 12:00] VITALS: BP 121/67; PULSE 79; RESP 18; TEMP 97.7
[2023-09-05 16:00] VITALS: BP 122/65; PULSE 81; RESP 18; TEMP 97.6
[2023-09-05] MEDS: INSULIN GLARGINE 100 UNITS/ML SUBCUT SCH (21:50)
[2023-09-06 08:00] VITALS: BP 106/51; PULSE 82; RESP 17; TEMP 97.5
[2023-09-06 12:00] VITALS: BP 120/68; PULSE 77; RESP 18; TEMP 97.7
[2023-09-06 16:00] VITALS: BP 126/74; PULSE 69; RESP 20; TEMP 97.5
[2023-09-06 20:00] VITALS: BP 143/71; PULSE 77; RESP 20; TEMP 98.4
[2023-09-06] MEDS: VANCOMYCIN 2,000 MG in DEXT 5% WATER 500 ML IV NR (23:48)
[2023-09-07] VITALS: BP 138/74; PULSE 75; RESP 20; TEMP 98.2
[2023-09-07 04:00] VITALS: BP 122/62; PULSE 75; RESP 20; TEMP 98.1
[2023-09-07] MEDS: DEXTROSE 50% WATER 50ML SYRINGE IV PRN (06:28)
[2023-09-07 08:00] VITALS: BP 119/46; PULSE 75; RESP 20; TEMP 97.5
[2023-09-07] MEDS: INSULIN GLARGINE 100 UNITS/ML SUBCUT SCH (10:00)
[2023-09-07] MEDS ORDERED: DOXY100T2 MT (11:08)
[2023-09-07 12:00] VITALS: BP 125/51; PULSE 75; RESP 19; TEMP 97.7
[2023-09-07] MEDS: VANCOMYCIN 1.25GM PMX (XELLIA) 250 ML IV SCH (13:07)
[2023-09-07] MEDS ORDERED: LIDOCAINE HCL 1% 10 MG/ML 10ML VIAL ONE (13:33)
[2023-09-07 16:00] VITALS: BP 110/80; PULSE 86; RESP 19; TEMP 96.7
[2023-09-07] MEDS ORDERED: VANCOMYCIN 1.25GM PMX (XELLIA) 250 ML IV SCH (18:00)
[2023-09-07 20:00] VITALS: BP 136/66; PULSE 87; RESP 20; TEMP 99.1
[2023-09-08] VITALS: BP 142/62; PULSE 80; RESP 20; TEMP 98.9
[2023-09-08 04:00] VITALS: BP 117/51; PULSE 75; RESP 20; TEMP 97.7
[2023-09-08 06:14] LABS: BASOPHILS % 0.6 % (0.0-2.0); HEMOGLOBIN. 10.7 g/dL (14.0-18.0); LYMPHOCYTES % 22.1 % (20.0-50.0); MEAN CORPUSCULAR HEMOGLOBIN 28.5 pg (28.0-32.0); MEAN CORPUSCULAR HGB CONC 32.3 g/dL (31.0-37.0); MEAN PLATELET VOLUME 9.1 fl (7.4-10.4); MONOCYTES % 9.9 % (2.0-8.0); NEUTROPHILS % 65.4 % (40.0-76.0); PLATELET 223 x1000/uL (130-400); RED BLOOD CELL COUNT 3.74 mill/uL (4.7-6.1); RED CELL DISTRIBUTION WIDTH 20.7 % (11.6-14.6); WHITE BLOOD COUNT 8.3 x1000/uL (4.5-11.0)
[2023-09-08 06:19] LABS: CALCIUM 8.5 mg/dL (8.7-10.4); CARBON DIOXIDE 25 mEq/L (21-32); CHLORIDE 109 mEq/L (98-107); CREATININE 1.2 mg/dL (0.6-1.3); GLUCOSE 83 mg/dL (70-105); SODIUM 141 mEq/L (136-145); UREA NITROGEN BLOOD 19 mg/dL (9-23)
[2023-09-08 08:00] VITALS: BP 130/50; PULSE 76; RESP 18; TEMP 96.6
[2023-09-08 12:00] VITALS: BP 125/45; PULSE 74; RESP 19; TEMP 96.8
[2023-09-08 16:00] VITALS: BP 128/71; PULSE 73; RESP 18; TEMP 98.1
[2023-09-08 20:00] VITALS: BP 136/45; PULSE 69; RESP 20; TEMP 98.2
[2023-09-09] VITALS (7 sets, daily range): BP systolic 117–154; BP diastolic 46–71; PULSE 70–90; RESP 18–20; TEMP 97.1–97.9
[2023-09-09] MEDS: VANCOMYCIN 1.25GM PMX (XELLIA) 250 ML IV SCH (00:17)
[2023-09-10] VITALS: BP 119/63; PULSE 83; RESP 17; TEMP 98
[2023-09-10] MEDS: ONDANSETRON HCL 4MG TABLET PO PRN (02:31)
[2023-09-10 04:00] VITALS: BP 155/74; PULSE 82; RESP 19; TEMP 99.3
[2023-09-10 08:00] VITALS: BP 165/81; PULSE 85; RESP 19; TEMP 96.7
[2023-09-10 12:00] VITALS: BP 138/83; PULSE 98; RESP 20; TEMP 97.3
[2023-09-10] MEDS ORDERED: LIDOCAINE HCL 1% 10 MG/ML 10ML VIAL ONE (13:25)
[2023-09-10 17:47] VITALS: BP 140/81; PULSE 88; TEMP 98.4; O2SAT 99
== END 2023-09-10 18:25 | disposition home health service (06) | DRG 344 ==
LOC: ER 09:14 → 6EST 13:12 → EDBEDREQ 13:27
PROVIDERS: ADMIT Internal Medicine; ATTEND Internal Medicine
PROC: 02HV33Z Insertion of Infusion Device into Superior Vena Cava, Percutaneous Approach (ICD-10-PCS; principal; 2023-09-07)
PROC: B548ZZA Ultrasonography of Superior Vena Cava, Guidance (ICD-10-PCS; 2023-09-07)
PROC: B5181ZA Fluoroscopy of Superior Vena Cava using Low Osmolar Contrast, Guidance (ICD-10-PCS; 2023-09-07)
PROC: 02HV33Z Insertion of Infusion Device into Superior Vena Cava, Percutaneous Approach (ICD-10-PCS; 2023-09-10)
PROC: B548ZZA Ultrasonography of Superior Vena Cava, Guidance (ICD-10-PCS; 2023-09-10)
PROC: B5181ZA Fluoroscopy of Superior Vena Cava using Low Osmolar Contrast, Guidance (ICD-10-PCS; 2023-09-10)
DX: E11.69 Type 2 diabetes mellitus with other specified complication (principal); M86.8X7 Other osteomyelitis, ankle and foot; N17.0 Acute kidney failure with tubular necrosis; I50.9 Heart failure, unspecified; I13.0 Hypertensive heart and chronic kidney disease with heart failure and stage 1 through stage 4 chronic kidney disease, or unspecified chronic kidney disease; D64.9 Anemia, unspecified; E11.51 Type 2 diabetes mellitus with diabetic peripheral angiopathy without gangrene; E11.22 Type 2 diabetes mellitus with diabetic chronic kidney disease; F12.90 Cannabis use, unspecified, uncomplicated; E11.65 Type 2 diabetes mellitus with hyperglycemia; E66.9 Obesity, unspecified; N18.9 Chronic kidney disease, unspecified; Z68.33 Body mass index [BMI] 33.0-33.9, adult; Z82.49 Family history of ischemic heart disease and other diseases of the circulatory system; Z79.4 Long term (current) use of insulin
CPT/HCPCS: 36415; 36573; 73630; 73718; 80048; 80053; 80061; 80202; 81003; 82962; 83036; 83605; 83615; 84145; 85025; 85651; 99291; C1725; J0696; J1815; J2543; J3370; J3490; J7030; J7060; Q0162

== ENCOUNTER 2024-01-28 08:12 | Emergency (ER) | payer MEDICAID, OTHER ==
[~2024-01-28] VITALS: Ht 193 cm; Wt 127.0 kg
[~2024-01-28 08:12] MED LIST changes: +DOXY100T2 MT; +HYDR-4001 MT
[2024-01-28 08:20] VITALS: O2SAT 98
[2024-01-28 09:49] VITALS: BP 121/85; PULSE 94; RESP 18; TEMP 97.1
== END 2024-01-28 09:53 | disposition home or self-care (01) ==
LOC: ER 08:12
DX: L02.211 Cutaneous abscess of abdominal wall (principal); E11.9 Type 2 diabetes mellitus without complications; I11.0 Hypertensive heart disease with heart failure; I50.9 Heart failure, unspecified; Z79.899 Other long term (current) drug therapy; Z90.49 Acquired absence of other specified parts of digestive tract; Z48.1 Encounter for planned postprocedural wound closure
CPT/HCPCS: 99281; Z7610